=== PATIENT | male | born 1960 | race Caucasian/White ===

== ENCOUNTER 2021-09-29 17:39 | Emergency (ER) | payer BC ==
[2021-09-29 17:49] VITALS: BP 115/79; PULSE 105
[2021-09-29] MEDS ORDERED: Sodium Chloride 0.9% 1,000 ML IV ONE (18:07)
[2021-09-29] MEDS ORDERED: Sodium Chloride 0.9% 10 ML Syringe FLUSH PRN (18:15)
[2021-09-29 18:51] LABS: ANION GAP 17.9 mmol/L (5-15)
--- NOTE | 2021-09-29 19:20 | EDM.PDOC ---
ED HPI GENERAL MEDICAL PROBLEM - General Chief Complaint: General Stated Complaint: POSSIBLE COVID?? Time Seen by Provider: 09/29/21 17:45 Source of Information: Reports: Patient History Limitations: Reports: No Limitations - History of Present Illness INITIAL COMMENTS - FREE TEXT/NARRATIVE: 61-year-old male presents to the emergency room with complaints of muscle aches chills cough sore throat lightheadedness and dizziness weakness. Symptoms started around and progressed Thursday. 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 Feels like he is run himself down. He is not been taking in fluids very adequately and not voiding much. He denies any nausea or vomiting or diarrhea. Is not had any abdominal complaints. He does have a history of Crohn's colitis and denies any significant bleeding from his rectum or dark stools. His primary care is Dr. Sherine Verdugo but has not seen her for quite some time as he follows up with a loan assistant facility service associate rules examiner and neurologist for his significant past history. He does have a history of a pituitary tumor which was partially removed in January 2015 and he was diagnosed with lupus in May 2015. He denies significant weight gain or loss. No fluid retention. He is not aware of any significant exposure to Covid. He denies any respiratory complaints shortness of breath or dyspnea. He denies any upper respiratory or sinusitis complaints. Upon his presentation is nontoxic-appearing. Onset: Gradual Onset Date: 09/26/21 Duration: Day(s):, Getting Worse Location: Reports: Generalized Quality: Reports: Ache Severity: Moderate Improves with: Reports: None Worsens with: Reports: None Associated Symptoms: Reports: Cough, Fever/Chills (Positive for chills negative for fever), Weakness. Denies: Confusion, Chest Pain, cough w sputum, Diaphoresis, Nausea/Vomiting, Shortness of Breath - Related Data Allergies Allergy/AdvReac Type Severity Reaction Status Date / Time Sulfa (Sulfonamide Allergy Rash Verified 09/29/21 17:48 Antibiotics) Home Meds: Home Meds Levothyroxine [Synthroid] 100 mcg PO DAILY 07/13/15 [History] Calcium Carbonate/Vitamin D3 [Calcium 600 + Vit D Tablet] 1 each PO BID 06/02/19 [History] Cholecalciferol (Vitamin D3) [Vitamin D3] 400 unit PO DAILY 06/02/19 [History] Cyanocobalamin (Vitamin B-12) [Cyanocobalamin Injection] 1,000 mcg IJ ASDIRECTED 06/02/19 [History] [place]-3/DHA/Epa/Fish Oil [Fish Oil 1,000 mg Softgel] 1,000 mg PO DAILY 06/02/19 [History] Ustekinumab [Stelara] 90 mg SQ Q2M 09/29/21 [History] predniSONE 7.5 mg PO DAILY 09/29/21 [History] Past Medical History HEENT History: Reports: Impaired Vision Other Genitourinary History: hematuria Other Musculoskeletal History: muscle pain and weakness Endocrine/Metabolic History: Reports: Hypothyroidism, Vitamin D Deficiency Other Endocrine/Metabolic History: pituatary tumor Hematologic History: Reports: B12 Deficiency, Iron Deficiency Immunologic History: Reports: Immunosuppression Other Immunologic History: recently diagnosed - Past Surgical History GI Surgical History: Reports: Colonoscopy, Other (See Below) Other GI Surgeries/Procedures: Ulcerative Colitis Male Surgical History: Reports: None Other Endocrine Surgeries/Procedures: pituatary tumor removed. Social & Family History - Family History Family Medical History: No Pertinent Family History - Tobacco Use Tobacco Use Status *Q: Current Every Day Tobacco User Years of Tobacco use: 8 Packs/Tins Daily: 0.3 - Caffeine Use Caffeine Use: Reports: Coffee, Soda - Recreational Drug Use Recreational Drug Use: No ED ROS GENERAL - Review of Systems Review Of Systems: See Below Constitutional: Reports: Weakness, Fatigue, Decreased Appetite. Denies: Fever, Chills, Diaphoresis HEENT: Reports: Throat Pain. Denies: Rhinitis, Sinus Problem, Throat Swelling, Vertigo, Vision Change Respiratory: Reports: Cough. Denies: Sputum Cardiovascular: Reports: Lightheadedness. Denies: Chest Pain, Dyspnea on Exertion, Edema, Palpitations Endocrine: Reports: Fatigue GI/Abdominal: Reports: No Symptoms : Reports: No Symptoms Musculoskeletal: Reports: No Symptoms Skin: Reports: No Symptoms Neurological: Reports: No Symptoms, Dizziness Psychiatric: Reports: No Symptoms Hematologic/Lymphatic: Reports: No Symptoms Immunologic: Reports: No Symptoms ED EXAM, GENERAL - Physical Exam Exam: See Below Exam Limited By: No Limitations General Appearance: Alert, WD/WN, No Apparent Distress Eye Exam: Bilateral Eye: EOMI, PERRL (Pupils are equal) Throat/Mouth: Normal Voice, No Airway Compromise Head: Atraumatic Neck: Normal Inspection, Supple, Non-Tender, Full Range of Motion. No: Lymphadenopathy (L), Lymphadenopathy (R) Respiratory/Chest: No Respiratory Distress, Lungs Clear, Normal Breath Sounds, No Accessory Muscle Use Cardiovascular: Regular Rate, Rhythm, No Murmur GI/Abdominal: Soft, Non-Tender Back Exam: Normal Inspection Extremities: Normal Inspection Neurological: Alert, Oriented, No Motor/Sensory Deficits Psychiatric: Normal Affect, Normal Mood Skin Exam: Warm, Dry, Intact, Normal Color, No Rash Lymphatic: No Adenopathy Course - Vital Signs Last Recorded V/S: Last Vital Signs Temp 98.6 F 09/29/21 17:44 Pulse 105 H 09/29/21 17:44 Resp 20 09/29/21 17:44 BP 115/79 09/29/21 17:44 Pulse Ox 97 09/29/21 17:44 - Orders/Labs/Meds Orders: Active Orders 24 hr Category Date Time Status COMPREHENSIVE METABOLIC PN,CMP [CHEM] Stat Lab 09/29/21 18:08 Ordered Labs: Laboratory Tests 09/29/21 09/29/21 09/29/21 Range/Units 18:08 18:08 19:11 WBC 10.37 H (5.00-10.00) 10^3/uL RBC 5.07 (4.50-6.00) 10^6/uL Hgb 14.9 (13.0-17.0) g/dL Hct 44.4 (40.0-52.0) % MCV 87.6 (82.0-92.0) fL MCH 29.4 (27.0-31.0) pg MCHC 33.6 (32.0-36.0) g/dL RDW 12.7 (11.5-14.5) % Plt Count 241 (150-400) 10^3/uL MPV 9.9 (7.4-10.4) fL Immature Gran % (Auto) 0.7 (0.0-5.0) % Neut % (Auto) 83.2 H (50.0-70.0) % Lymph % (Auto) 8.7 L (20.0-40.0) % Allen % (Auto) 7.0 (2.0-8.0) % Eos % (Auto) 0.1 L (1.0-3.0) % Baso % (Auto) 0.3 (0.0-1.0) % Neut # (Auto) 8.63 H (2.50-7.00) 10^3/uL Lymph # (Auto) 0.90 L (1.00-4.00) 10^3/uL Allen # (Auto) 0.73 (0.10-0.80) 10^3/uL Eos # (Auto) 0.01 L (0.10-0.30) 10^3/uL Baso # (Auto) 0.03 (0.00-0.10) 10^3/uL Immature Gran # (Auto) 0.07 (0.00-0.50) 10^3/uL Sodium 134 L (136-145) mmol/L Potassium 4.4 (3.5-5.1) mmol/L Chloride 97 L (98-107) mmol/L Carbon Dioxide 23.5 (21.0-32.0) mmol/L Anion Gap 17.9 H (5-15) mmol/L BUN 19 H (7-18) mg/dL Creatinine 1.33 H (0.51-1.17) mg/dL Est Cr Clr Drug Dosing 60.22 mL/min Estimated GFR (MDRD) 55 mL/min Glucose 96 (70-140) mg/dL Calcium 8.2 L (8.7-10.3) mg/dL AST 36 (15-37) U/L ALT 20 (14-63) U/L Alkaline Phosphatase 93 (46-116) U/L Total Protein 7.8 (6.4-8.2) g/dL Albumin 3.49 (3.40-5.00) g/dL Influenza Type A RNA Negative (NEGATIVE) RSV RNA (INAAT) Negative (NEGATIVE) Influenza Type B RNA Negative (NEGATIVE) SARS-CoV-2 RNA (FRANCK) Positive H (NEGATIVE) Meds: Medications Discontinued Medications Generic Name Dose Route Start Last Admin Trade Name Freq PRN Reason Stop Dose Admin Sodium Chloride 1,000 mls @ 1,000 mls/hr 09/29/21 18:07 Normal Saline IV 09/29/21 19:06 .BOLUS ONE - Re-Assessments/Exams Free Text/Narrative Re-Assessment/Exam: 09/29/21 19:38 Discussed Covid positive results with the patient and treatment options as well as isolation for the next 10 to 14 days while symptoms persist. Patient feels much better with the 1 L of IV fluids. Departure - Departure Time of Disposition: 19:39 Disposition: Home, Self-Care 01 Condition: Fair Clinical Impression: Lab test positive for detection of COVID-19 virus, Weakness generalized - Discharge Information Instructions: 10 Things You Can Do to Manage Your COVID-19 Symptoms at Home - [facility] (05/10/2021) Referrals: Sherine Recinos MD [Primary Care Provider] - Forms: ED Department Discharge Care Plan Goals: 1. Rest 2. Isolation over the next 10 to 14 days while symptoms persist. 3. Encouraged and push oral fluids. 4. Discussed the mono nuclear infusion. 5. Return to the ER if symptoms worsen such as increased shortness of breath or difficulty breathing. Sepsis Event Note (ED) - Evaluation Sepsis Screening Result: No Definite Risk - Focused Exam Vital Signs: Vital Signs Temp Pulse Resp BP Pulse Ox 09/29/21 17:44 98.6 F 105 H 20 115/79 97 - My Orders Last 24 Hours: My Active Orders 09/29/21 18:08 COMPREHENSIVE METABOLIC PN,CMP [CHEM] Stat - Assessment/Plan Last 24 Hours: My Active Orders 09/29/21 18:08 COMPREHENSIVE METABOLIC PN,CMP [CHEM] Stat Assessment:: Covid positive lab result Generalized weakness Dehydration, IV fluid replacement Plan: 1. Rest 2. Isolation over the next 10 to 14 days while symptoms persist. 3. Encouraged and push oral fluids. 4. Discussed the mono nuclear infusion. 5. Return to the ER if symptoms worsen such as increased shortness of breath or difficulty breathing.
[2021-09-29 19:24] LABS: CORONAVIRUS COVID-19 NAA POSITIVE (NEGATIVE); RESPIRATORY SYNCYTIAL VIR NAA NEGATIVE (NEGATIVE)
== END 2021-09-29 19:50 | disposition home or self-care (01) ==
LOC: KA.ED 17:39
DX: U07.1 COVID-19 (principal); Z88.2 Allergy status to sulfonamides; Z79.899 Other long term (current) drug therapy; Z72.0 Tobacco use
CPT/HCPCS: 0241U; 36415; 80053; 85025; 99284; J7030

== ENCOUNTER 2021-10-04 11:38 | Emergency (ER) | payer BC ==
[2021-10-04 11:54] VITALS: BP 139/88; PULSE 107
--- NOTE | 2021-10-04 12:24 | EDM.PDOC ---
ED HPI GENERAL MEDICAL PROBLEM - General Chief Complaint: Respiratory Problem Stated Complaint: COVID + Time Seen by Provider: 10/04/21 11:40 Source of Information: Reports: Patient, EMS, RN History Limitations: Reports: No Limitations - History of Present Illness INITIAL COMMENTS - FREE TEXT/NARRATIVE: 61-year-old male presents to the emergency room brought in by EMS for respi ratory complaints. Patient is feeling progressively short of breath and increased weakness today with associated chills. He was diagnosed with Covid positive test last Thursday in the emergency room. He has been feeling overall fairly well until this morning when the aches chills weakness and shortness of breath presented itself. EMS was called to his house he was evaluated. Evidently he was running a temp of about 102. He was tachycardic O2 saturations were well maintained at 95%. He was placed on a nasal cannula 5 L and O2 sats were maintained at 100%. His respirations have remained around 16-20. He is not cyanotic appearing he is in no acute distress. He is not in any respiratory distress. Temperature currently was 100.7. O2 saturation was taken off and he was able to maintain his O2 stats at 95% and respirations were 16. He was given 1000 mg of Tylenol soon after his arrival. He had 1 L of normal saline bolus in route. He is communicative, cooperative and is able to answer all questions without increased respiratory effort. He did receive monoclonal antibodies infusion 5 days ago. Onset: Gradual Duration: Getting Worse Location: Reports: Chest, Generalized Quality: Reports: Ache Severity: Moderate Improves with: Reports: None Worsens with: Reports: None Context: Reports: Sick Contact (COVID) Associated Symptoms: Reports: Cough, Fever/Chills, Shortness of Breath, Weakness. Denies: Chest Pain, Diaphoresis, Headaches, Nausea/Vomiting Treatments [employer]: Reports: IV/IO, Oxygen, See EMS Report Back Pain Score (Numeric/FACES): 3 - Related Data Allergies Allergy/AdvReac Type Severity Reaction Status Date / Time Sulfa (Sulfonamide Allergy Rash Verified 10/04/21 11:55 Antibiotics) Home Meds: Home Meds Levothyroxine [Synthroid] 100 mcg PO DAILY 07/13/15 [History] Calcium Carbonate/Vitamin D3 [Calcium 600 + Vit D Tablet] 1 each PO BID 06/02/19 [History] Cholecalciferol (Vitamin D3) [Vitamin D3] 400 unit PO DAILY 06/02/19 [History] Cyanocobalamin (Vitamin B-12) [Cyanocobalamin Injection] 1,000 mcg IJ Q30D 06/02/19 [History] [place]-3/DHA/Epa/Fish Oil [Fish Oil 1,000 mg Softgel] 1,000 mg PO DAILY 06/02/19 [History] Ustekinumab [Stelara] 90 mg SQ Q2M 09/29/21 [History] predniSONE 7.5 mg PO DAILY 09/29/21 [History] Celecoxib 200 mg PO DAILY PRN 09/30/21 [History] Zinc 50 mg PO DAILY 09/30/21 [History] Past Medical History HEENT History: Reports: Impaired Vision Other HEENT History: wears glasses Gastrointestinal History: Reports: Gastritis, Other (See Below) Other Gastrointestinal History: Crohn's Genitourinary History: Reports: Other (See Below) Other Genitourinary History: hematuria,ulcerative proctitis Other Musculoskeletal History: muscle pain and weakness Endocrine/Metabolic History: Reports: Hypothyroidism, Vitamin D Deficiency Other Endocrine/Metabolic History: pituitary tumor. lipoprotein deficiency disorder. Lupus Hematologic History: Reports: B12 Deficiency, Iron Deficiency Immunologic History: Reports: Immunosuppression Other Immunologic History: recently diagnosed - Infectious Disease History Infectious Disease History: Reports: Chicken Pox, Novel Coronavirus, Rubella Other Infectious Disease History: Covid 09/29/21 - Past Surgical History Head Surgeries/Procedures: Reports: Other (See Below) GI Surgical History: Reports: Appendectomy, Colonoscopy, Other (See Below) Other GI Surgeries/Procedures: Ulcerative Colitis Male Surgical History: Reports: None Endocrine Surgical History: Reports: Pituitary Tumor Resection Other Endocrine Surgeries/Procedures: pituatary tumor removed. Neurological Surgical History: Reports: Intracranial Musculoskeletal Surgical History: Reports: Arthroscopic Knee Social & Family History - Family History Family Medical History: No Pertinent Family History - Tobacco Use Tobacco Use Status *Q: Current Every Day Tobacco User Years of Tobacco use: 10 Packs/Tins Daily: 5 - Caffeine Use Caffeine Use: Reports: Coffee, Soda - Recreational Drug Use Recreational Drug Use: No ED ROS GENERAL - Review of Systems Review Of Systems: See Below Constitutional: Reports: Fever, Chills, Weakness, Fatigue HEENT: Reports: No Symptoms Respiratory: Reports: Shortness of Breath, Cough Cardiovascular: Reports: No Symptoms Endocrine: Reports: No Symptoms GI/Abdominal: Reports: No Symptoms : Reports: No Symptoms Musculoskeletal: Reports: No Symptoms Skin: Reports: No Symptoms. Denies: Cyanosis Neurological: Reports: Weakness Psychiatric: Reports: No Symptoms Hematologic/Lymphatic: Reports: No Symptoms Immunologic: Reports: No Symptoms ED EXAM, GENERAL - Physical Exam Exam: See Below Exam Limited By: No Limitations General Appearance: Alert, WD/WN, No Apparent Distress, Anxious Eye Exam: Bilateral Eye: EOMI, PERRL (Pupils are equal and round) Ears: Hearing Grossly Normal Nose: Normal Inspection, Normal Mucosa, No Blood Throat/Mouth: Normal Inspection, Normal Voice, No Airway Compromise, Other (Nasal cannula, nonrebreather mask are in place) Head: Atraumatic, Normocephalic Neck: Normal Inspection, Supple, Non-Tender, Full Range of Motion. No: Lymphadenopathy (L), Lymphadenopathy (R) Respiratory/Chest: No Respiratory Distress, Lungs Clear, Normal Breath Sounds, No Accessory Muscle Use, Chest Non-Tender. No: Crackles, Rales, Rhonchi, Wheezing Cardiovascular: Normal Peripheral Pulses, Regular Rate, Rhythm, Tachycardia Peripheral Pulses: 2+: Carotid (L), Carotid (R), Radial (L), Radial (R), Dorsalis Pedis (L), Dorsalis Pedis (R) GI/Abdominal: Soft, Non-Tender Back Exam: Normal Inspection, Full Range of Motion Extremities: Normal Inspection, Normal Range of Motion, Non-Tender, No Pedal Frankie ma, Normal Capillary Refill Neurological: Alert, Oriented, CN II-XII Intact, Normal Cognition, Normal Gait, Normal Reflexes, No Motor/Sensory Deficits Psychiatric: Normal Affect, Normal Mood Skin Exam: Warm, Dry, Intact, Normal Color, No Rash. No: Cyanosis, Diaphoretic Lymphatic: No Adenopathy Course - Vital Signs Last Recorded V/S: Last Vital Signs Temp 99.1 F 10/04/21 13:58 Pulse 107 H 10/04/21 11:47 Resp 24 H 10/04/21 11:47 BP 139/88 10/04/21 11:47 Pulse Ox 95 10/04/21 12:10 - Orders/Labs/Meds Orders: Active Orders 24 hr Category Date Time Status PROCALCITONIN [REF] Stat Lab 10/04/21 12:35 Received Sodium Chloride 0.9% [Normal Saline] 100 ml Med 10/04/21 14:15 Active IV ASDIRECTED Medication Orders Sodium Chloride (Normal Saline) 100 mls @ 200 mls/hr IV ASDIRECTED LONI Last Admin: 10/04/21 14:36 Dose: 200 mls/hr Documented by: Labs: Laboratory Tests 10/04/21 10/04/21 10/04/21 Range/Units 12:35 12:35 12:35 WBC 10.43 H (5.00-10.00) 10^3/uL RBC 4.23 L (4.50-6.00) 10^6/uL Hgb 12.6 L D (13.0-17.0) g/dL Hct 37.5 L (40.0-52.0) % MCV 88.7 (82.0-92.0) fL MCH 29.8 (27.0-31.0) pg MCHC 33.6 (32.0-36.0) g/dL RDW 12.4 (11.5-14.5) % Plt Count 185 (150-400) 10^3/uL MPV 9.3 (7.4-10.4) fL Add Manual Diff Yes Neutrophils % (Manual) 94 H (50-70) % Band Neutrophils % 3 L (4-12) % Lymphocytes % (Manual) 3 L (20-40) % Atypical Lymphs % 0 Monocytes % (Manual) 0 L (2-8) % Eosinophils % (Manual) 0 L (1-3) % Basophils % (Manual) 0 (0-1) % Platelet Estimate Adequate PT (9.2-11.2) SEC INR (0.9-1.1) APTT (22.8-31.4) SEC D-Dimer, Quantitative (<400) ng/mL Sodium 138 (136-145) mmol/L Potassium 3.5 (3.5-5.1) mmol/L Chloride 101 (98-107) mmol/L Carbon Dioxide 24.9 (21.0-32.0) mmol/L Anion Gap 15.6 H (5-15) mmol/L BUN 15 (7-18) mg/dL Creatinine 1.30 H (0.51-1.17) mg/dL Est Cr Clr Drug Dosing 61.61 mL/min Estimated GFR (MDRD) 56 mL/min Glucose 94 (70-140) mg/dL Lactic Acid 1.4 (0.4-2.0) mmol/L Calcium 7.5 L (8.7-10.3) mg/dL Creatine Kinase 107 (26-276) U/L Troponin I High Sens 8.400 (0-76.000) pg/mL C-Reactive Protein 2.7 H (0.0-0.9) mg/dL 10/04/21 Range/Units 12:35 WBC (5.00-10.00) 10^3/uL RBC (4.50-6.00) 10^6/uL Hgb (13.0-17.0) g/dL Hct (40.0-52.0) % MCV (82.0-92.0) fL MCH (27.0-31.0) pg MCHC (32.0-36.0) g/dL RDW (11.5-14.5) % Plt Count (150-400) 10^3/uL MPV (7.4-10.4) fL Add Manual Diff Neutrophils % (Manual) (50-70) % Band Neutrophils % (4-12) % Lymphocytes % (Manual) (20-40) % Atypical Lymphs % Monocytes % (Manual) (2-8) % Eosinophils % (Manual) (1-3) % Basophils % (Manual) (0-1) % Platelet Estimate PT 11.9 H (9.2-11.2) SEC INR 1.1 (0.9-1.1) APTT 29.1 (22.8-31.4) SEC D-Dimer, Quantitative 1830 H (<400) ng/mL Sodium (136-145) mmol/L Potassium (3.5-5.1) mmol/L Chloride (98-107) mmol/L Carbon Dioxide (21.0-32.0) mmol/L Anion Gap (5-15) mmol/L BUN (7-18) mg/dL Creatinine (0.51-1.17) mg/dL Est Cr Clr Drug Dosing mL/min Estimated GFR (MDRD) mL/min Glucose (70-140) mg/dL Lactic Acid (0.4-2.0) mmol/L Calcium (8.7-10.3) mg/dL Creatine Kinase (26-276) U/L Troponin I High Sens (0-76.000) pg/mL C-Reactive Protein (0.0-0.9) mg/dL Meds: Medications Generic Name Dose Route Start Last Admin Trade Name Giulianoq PRN Reason Stop Dose Admin Sodium Chloride 100 mls @ 200 mls/hr 10/04/21 14:15 10/04/21 14:36 Normal Saline IV 200 mls/hr ASDIRECTED LONI Administration Discontinued Medications Generic Name Dose Route Start Last Admin Trade Name Freq PRN Reason Stop Dose Admin Acetaminophen 1,000 mg 10/04/21 12:30 10/04/21 12:53 Acetaminophen 500 Mg Tab PO 10/04/21 12:31 1,000 mg ONETIME ONE Administration Dexamethasone 6 mg 10/04/21 12:49 10/04/21 12:50 Dexamethasone 4 Mg/Ml Sdv IVPUSH 10/04/21 12:50 6 mg ONETIME ONE Administration Sodium Chloride Confirm 10/04/21 12:57 10/04/21 13:02 Normal Saline Administered 10/04/21 12:58 Not Given Dose 1,000 mls @ as directed .ROUTE .STK-MED ONE Sodium Chloride 1,000 mls @ 999 mls/hr 10/04/21 13:00 10/04/21 13:00 Normal Saline IV 10/04/21 14:00 999 mls/hr .BOLUS ONE Administration Iopamidol 75 ml 10/04/21 14:06 10/04/21 14:36 Iopamidol 755 Mg/Ml 75 Ml Bottle IVPUSH 10/04/21 14:07 75 ml ONETIME ONE Administration - Radiology Interpretation Free Text/Narrative:: CT angiogram chest Indication: Shortness of breath, elevated D-dimer, Covid positive Comparison: None Discussion: The pulmonary arteries are normal in appearance with no emboli identified. Basal and peripheral predominant consolidation and groundglass opacities scattered throughout both lungs compatible the clinical history of Covid pneumonia. Sequela of chronic obstructive pulmonary disease including mild to moderate apical prominent emphysema and changes of bronchitis. Mild cardiomegaly. Coronary artery calcifications. No pleural or pericardial effusion. Mildly prominent right hilar node measuring 20 x 13. Otherwise no thoracic adenopathy. Small sliding-type hiatus hernia. Impression: Multifocal peripheral predominant groundglass opacities and consolidation consistent with a history of Covid pneumonia. Negative for pulmonary embolism. - Re-Assessments/Exams Free Text/Narrative Re-Assessment/Exam: 10/04/21 13:42 Patient is resting comfortably. His O2 saturations are maintained at 92 to 95% on room air. Blood pressures been maintained. His respirations are 22. He is receiving an additional liter of IV fluids as his creatinine was mildly elevated likely indicating he is dehydrated as well as mildly tachycardic. His lactic acid is normal. White count is just mildly elevated. There is no shift. CRP is mildly elevated. Departure - Departure Time of Disposition: 15:05 Disposition: Home, Self-Care 01 Condition: Fair Clinical Impression: COVID-19 in immunocompromised patient - Discharge Information Instructions: 10 Things You Can Do to Manage Your COVID-19 Symptoms at Home - [facility] (05/10/2021) Referrals: Janel Colon, [employer]CRA[employer]PATCHER [Primary Care Provider] - Forms: ED Department Discharge Care Plan Goals: 1. Rest 2. Tylenol for any fever or chills, muscle aches. 3. Push oral fluids including water, Pedialyte, Gatorade for electrolyte replacement. 4. Continue with isolation with your current Covid symptoms. 5. Return to the ER if respiratory distress, difficulty breathing becomes problematic. 6. CT scan was negative for PE. Sepsis Event Note (ED) - Evaluation Sepsis Screening Result: Possible Sepsis Risk - Focused Exam Vital Signs: Vital Signs Temp Temp Pulse Resp BP Pulse Ox Pulse Ox 10/04/21 13:58 99.1 F 10/04/21 12:53 98.9 F 10/04/21 12:10 10/04/21 11:47 100.7 F H 107 H 24 H 139/88 99 10/04/21 11:40 99 Pulse Ox 10/04/21 13:58 10/04/21 12:53 10/04/21 12:10 95 10/04/21 11:47 10/04/21 11:40 - My Orders Last 24 Hours: My Active Orders 10/04/21 12:35 PROCALCITONIN [REF] Stat 10/04/21 14:15 Sodium Chloride 0.9% [Normal Saline] 100 ml IV ASDIRECTED - Assessment/Plan Last 24 Hours: My Active Orders 10/04/21 12:35 PROCALCITONIN [REF] Stat 12/10/21 14:15 Sodium Chloride 0.9% [Normal Saline] 100 ml IV ASDIRECTED Assessment:: Covid pneumonia Respiratory complaint. No respiratory distress with maintaining O2 saturations room air Plan: 1. Rest 2. Patient is encouraged to push fluids for hydration. Water, Gatorade, Pedialyte to maintain his electrolytes. 3. Tylenol for any fever or chills or aches. 4. Continue with isolation. 5. Return to the ER with any respiratory distress.
[2021-10-04] MEDS ORDERED: Acetaminophen 500 MG Tab PO ONE (12:30)
[2021-10-04] MEDS ORDERED: Dexamethasone 4 MG/ML SDV IVPUSH ONE (12:49)
[2021-10-04] MEDS ORDERED: Sodium Chloride 0.9% 1,000 ML ONE (12:57)
[2021-10-04] MEDS ORDERED: Sodium Chloride 0.9% 1,000 ML IV ONE (13:00)
[2021-10-04 13:08] LABS: ANION GAP 15.6 mmol/L (5-15)
[2021-10-04 13:12] LABS: PTT,PARTIAL THROMBOPLSTIN TIME 29.1 SEC (22.8-31.4)
[2021-10-04] MEDS ORDERED: Iopamidol 755 Mg/ML 75 ML Bottle IVPUSH ONE (14:06)
[2021-10-04] MEDS ORDERED: Sodium Chloride 0.9% 100 ML IV SCH (14:15)
--- NOTE | 2021-10-04 14:57 | CT ---
[id number] CT/CTA Chest EXAM: CT ANGIOGRAM CHEST INDICATION: SHORTNESS OF BREATH, ELEVATED D-DIMER, COVID +. COMPARISON: None. DISCUSSION: The pulmonary arteries are normal in appearance with no emboli identified. Basal and peripheral predominant consolidation and groundglass opacities scattered throughout both lungs compatible the clinical history of COVID pneumonia. Sequela of chronic obstructive pulmonary disease including mild to moderate apical predominant emphysema and changes of bronchitis. Mild cardiomegaly. Coronary artery calcifications. No pleural or pericardial effusion. Mildly prominent right hilar node measuring 20 x 13 mm. Otherwise, no thoracic adenopathy. Small sliding type hiatus hernia. IMPRESSION: 1. Multifocal peripheral predominant groundglass opacities and consolidation consistent with the clinical history of COVID pneumonia. 2. Negative for pulmonary embolism. Sabino Naranjo MD 10/04/21 [id number] Thank you for allowing us to participate in the care of your patient.
== END 2021-10-04 15:15 | disposition home or self-care (01) ==
LOC: KA.ED 11:38
DX: U07.1 COVID-19 (principal); D84.9 Immunodeficiency, unspecified; E03.9 Hypothyroidism, unspecified; Z88.2 Allergy status to sulfonamides; Z79.899 Other long term (current) drug therapy; Z72.0 Tobacco use
CPT/HCPCS: 36415; 71275; 80048; 82550; 83605; 84145; 84484; 85025; 85379; 85610; 85730; 86140; 96374; 99284; 99285-25; A9270-GY; J1100; J7030; Q9967

== ENCOUNTER 2021-10-11 11:10 | Observation (INO) | payer BC ==
[2021-10-11] MEDS ORDERED: Sodium Chloride 0.9% 1,000 ML IV ONE (11:27)
[2021-10-11] MEDS ORDERED: Sodium Chloride 0.9% 10 ML Syringe FLUSH PRN (11:27)
[2021-10-11] MEDS ORDERED: LORazepam 2 MG/ML SDV IVPUSH ONE (11:27)
[2021-10-11] MEDS ORDERED: Acetaminophen 500 MG Tab PO ONE (11:27)
--- NOTE | 2021-10-11 11:30 | EDM.PDOC ---
ED HPI GENERAL MEDICAL PROBLEM - General Chief Complaint: General Stated Complaint: RIGORS Time Seen by Provider: 10/11/21 11:18 Source of Information: Reports: Patient, EMS History Limitations: Reports: No Limitations - History of Present Illness INITIAL COMMENTS - FREE TEXT/NARRATIVE: 61 YO WM PRESENTS TO ER BY EMS WITH COMPLAINTS OF GENERALIZED WEAKNESS WHICH HAS BEEN PROGRESSIVE SINCE 09/26/2021. PT WAS SEEN IN ER ON 09/29/2021 FOR SIMILAR SYMPTOMS AND DIAGNOSED WITH COVID. PT WAS GIVEN IV INFUSION OF MONOCLONAL ANTIBODIES ON 09/30/2021. PT RETURNED TO ER FOR WORSENING SHORTNESS OF BREATH ON 10/04/2021 AND WAS SUBSEQUENTLY DISCHARGED HOME WITH SUPPORTIVE CARE BUT WITHOUT SUPPLEMENTAL O2. PT RETURNS TODAY WITH COMPLAINTS OF INSOMNIA, ANOREXIA AND SEVERE CHILLS WITH GENERALIZED WEAKNESS. PT CALLED EMS AND WAS STARTED ON O2 5L NONREBREATHER. PT REPORTS HE FEELS NAUSEATED AND CHILLED MOSTLY AND UNABLE TO EAT OR DRINK ANYTHING OTHER THAN WATER. DENIES CHEST PAIN, NO SIGNIFICANT SHORTNESS OF BREATH, NO VOMITING, NO DIARRHEA. PT UNSURE IF HE HAS A FEVER BUT IN ER TEMP- 98.3. Onset Date: 09/26/21 Duration: Getting Worse, Waxing/Waning Location: Reports: Generalized Quality: Reports: Ache Severity: Moderate Improves with: Reports: None Worsens with: Reports: None Associated Symptoms: Reports: Cough, Loss of Appetite, Malaise, Nausea/Vomiting, Weakness. Denies: Confusion, Chest Pain, Fever/Chills, Headaches, Rash, Seizure, Shortness of Breath Treatments COPYMAN: Reports: NSAIDS - Related Data Allergies Allergy/AdvReac Type Severity Reaction Status Date / Time Sulfa (Sulfonamide Allergy Rash Verified 10/11/21 12:22 Antibiotics) Home Meds: Home Meds Levothyroxine [Synthroid] 100 mcg PO DAILY 07/13/15 [History] Calcium Carbonate/Vitamin D3 [Calcium 600 + Vit D Tablet] 1 each PO BID 06/02/19 [History] Cholecalciferol (Vitamin D3) [Vitamin D3] 400 unit PO DAILY 06/02/19 [History] Cyanocobalamin (Vitamin B-12) [Cyanocobalamin Injection] 1,000 mcg IJ Q30D 06/02/19 [History] [place]-3/DHA/Epa/Fish Oil [Fish Oil 1,000 mg Softgel] 1,000 mg PO DAILY 06/02/19 [History] Ustekinumab [Stelara] 90 mg SQ Q2M 09/29/21 [History] predniSONE 7.5 mg PO DAILY 09/29/21 [History] Celecoxib 200 mg PO DAILY PRN 09/30/21 [History] Zinc 50 mg PO DAILY 09/30/21 [History] Past Medical History HEENT History: Reports: Impaired Vision Other HEENT History: wears glasses Gastrointestinal History: Reports: Gastritis, Other (See Below) Other Gastrointestinal History: Crohn's Genitourinary History: Reports: Other (See Below) Other Genitourinary History: hematuria,ulcerative proctitis Other Musculoskeletal History: muscle pain and weakness Endocrine/Metabolic History: Reports: Hypothyroidism, Vitamin D Deficiency Other Endocrine/Metabolic History: pituitary tumor. lipoprotein deficiency disorder. Lupus Hematologic History: Reports: B12 Deficiency, Iron Deficiency Immunologic History: Reports: Immunosuppression Other Immunologic History: recently diagnosed - Infectious Disease History Infectious Disease History: Reports: Chicken Pox, Novel Coronavirus, Rubella Other Infectious Disease History: Covid 09/29/21 - Past Surgical History Head Surgeries/Procedures: Reports: Other (See Below) GI Surgical History: Reports: Appendectomy, Colonoscopy, Other (See Below) Other GI Surgeries/Procedures: Ulcerative Colitis Male Surgical History: Reports: None Endocrine Surgical History: Reports: Pituitary Tumor Resection Other Endocrine Surgeries/Procedures: pituatary tumor removed. Neurological Surgical History: Reports: Intracranial Musculoskeletal Surgical History: Reports: Arthroscopic Knee Social & Family History - Family History Family Medical History: No Pertinent Family History - Caffeine Use Caffeine Use: Reports: Coffee, Soda ED ROS GENERAL - Review of Systems Review Of Systems: See Below Constitutional: Reports: Chills, Malaise, Weakness, Fatigue, Decreased Appetite HEENT: Reports: Rhinitis Respiratory: Reports: Shortness of Breath, Cough Cardiovascular: Reports: No Symptoms Endocrine: Reports: No Symptoms GI/Abdominal: Reports: Decreased Appetite, Nausea. Denies: Abdominal Pain, Black Stool, Bloody Stool, Diarrhea, Vomiting : Reports: No Symptoms Musculoskeletal: Reports: No Symptoms Skin: Reports: No Symptoms Neurological: Reports: No Symptoms Psychiatric: Reports: Anxiety Hematologic/Lymphatic: Reports: No Symptoms Immunologic: Reports: No Symptoms ED EXAM, GENERAL - Physical Exam Exam: See Below Exam Limited By: No Limitations General Appearance: Alert, WD/WN, Anxious Eye Exam: Bilateral Eye: EOMI, PERRL Head: Atraumatic, Normocephalic Neck: Normal Inspection, Supple, Non-Tender, Full Range of Motion Respiratory/Chest: No Respiratory Distress ( ), Lungs Clear, Normal Breath Sounds, No Accessory Muscle Use, Chest Non-Tender Cardiovascular: Normal Peripheral Pulses, Regular Rate, Rhythm, No Edema, No Gallop, No JVD, No Murmur, No Rub GI/Abdominal: Normal Bowel Sounds, Soft, Non-Tender, No Organomegaly, No Distention, No Abnormal Bruit, No Mass Back Exam: Normal Inspection, Full Range of Motion, NT Extremities: Normal Inspection, Normal Range of Motion, Non-Tender, Normal Capillary Refill, No Pedal Edema Neurological: Alert, Oriented, CN II-XII Intact, Normal Cognition, Normal Gait, No Motor/Sensory Deficits Psychiatric: Normal Affect, Normal Mood Skin Exam: Warm, Dry, Intact, Normal Color, No Rash Lymphatic: No Adenopathy #1 Interpretation EKG Date: 10/11/21 Time: 11:40 Rhythm: NSR Rate (Beats/Min): 106 [place]: Normal P-Wave: Present QRS: Normal ST-T: Normal QT: Normal Comparison: NA - No Prior EKG Course - Vital Signs Last Recorded V/S: Last Vital Signs Temp 98.3 F 10/11/21 12:07 Pulse 22 L 10/11/21 12:07 Resp 22 H 10/11/21 12:07 BP 131/79 10/11/21 12:07 Pulse Ox 98 10/11/21 12:07 - Orders/Labs/Meds Orders: Active Orders 24 hr Category Date Time Status Peripheral IV Care [RC] . DIRECTED Care 10/11/21 11:28 Active CORONAVIRUS COVID-19 RAPID [MOLEC] Stat Lab 10/11/21 13:01 Ordered CULTURE BLOOD [BC] Stat Lab 10/11/21 12:03 Ordered CULTURE BLOOD [BC] Stat Lab 10/11/21 12:03 Ordered UA W/MICROSCOPIC [URIN] Stat Lab 10/11/21 12:03 Ordered Levofloxacin/Dextrose 5%-Water [Levaquin in D5W 500 MG/ Med 10/11/21 12:59 Ordered 100 ML] 500 mg Premix Bag 1 bag IV ONETIME Sodium Chloride 0.9% [Saline Flush] Med 10/11/21 11:27 Active 10 ml FLUSH Q8HR PRN Blood Culture x2 Reflex Set [OM.PC] Stat Oth 10/11/21 12:03 Ordered Peripheral IV Insertion Adult [OM.PC] Routine Oth 10/11/21 11:27 Ordered EKG 12 Lead [EK] Stat Ther 10/11/21 11:27 Ordered Medication Orders Levofloxacin/Dextrose 500 mg/ (Premix) 100 mls @ 100 mls/hr IV ONETIME ONE Stop: 10/11/21 13:58 Sodium Chloride (Sodium Chloride 0.9% 10 Ml Syringe) 10 ml FLUSH Q8HR PRN PRN Reason: keep vein open Labs: Laboratory Tests 10/11/21 10/11/21 10/11/21 Range/Units 11:34 11:34 11:34 WBC 19.70 H (5.00-10.00) 10^3/uL RBC 4.03 L (4.50-6.00) 10^6/uL Hgb 11.8 L (13.0-17.0) g/dL Hct 34.4 L (40.0-52.0) % MCV 85.4 D (82.0-92.0) fL MCH 29.3 (27.0-31.0) pg MCHC 34.3 (32.0-36.0) g/dL RDW 12.5 (11.5-14.5) % Plt Count 431 H D (150-400) 10^3/uL MPV 10.0 (7.4-10.4) fL Add Manual Diff Yes Neutrophils % (Manual) 93 H (50-70) % Band Neutrophils % 2 L (4-12) % Lymphocytes % (Manual) 4 L (20-40) % Atypical Lymphs % 0 Monocytes % (Manual) 1 L (2-8) % Eosinophils % (Manual) 0 L (1-3) % Basophils % (Manual) 0 (0-1) % Platelet Estimate Increased Sodium 132 L (136-145) mmol/L Potassium 3.5 (3.5-5.1) mmol/L Chloride 96 L (98-107) mmol/L Carbon Dioxide 17.4 L (21.0-32.0) mmol/L Anion Gap 22.1 H (5-15) mmol/L BUN 22 H (7-18) mg/dL Creatinine 1.31 H (0.51-1.17) mg/dL Est Cr Clr Drug Dosing TNP Estimated GFR (MDRD) 56 mL/min Glucose 109 (70-140) mg/dL Lactic Acid 2.6 H (0.4-2.0) mmol/L Calcium 7.9 L (8.7-10.3) mg/dL Total Bilirubin 1.6 H (0.2-1.0) mg/dL AST 66 H (15-37) U/L ALT 73 H (14-63) U/L Alkaline Phosphatase 145 H (46-116) U/L Troponin I High Sens 162.600 H* (0-76.000) pg/mL Total Protein 6.9 (6.4-8.2) g/dL Albumin 2.31 L (3.40-5.00) g/dL Meds: Medications Generic Name Dose Route Start Last Admin Trade Name Freq PRN Reason Stop Dose Admin Levofloxacin/Dextrose 500 mg/ 100 mls @ 100 mls/hr 10/11/21 12:59 Premix IV 10/11/21 13:58 ONETIME ONE Sodium Chloride 10 ml 10/11/21 11:27 Sodium Chloride 0.9% 10 Ml Syringe FLUSH Q8HR PRN keep vein open Discontinued Medications Generic Name Dose Route Start Last Admin Trade Name Freq PRN Reason Stop Dose Admin Acetaminophen 1,000 mg 10/11/21 11:27 10/11/21 11:40 Acetaminophen 500 Mg Tab PO 10/11/21 11:28 1,000 mg ONETIME ONE Administration Sodium Chloride 1,000 mls @ 999 mls/hr 10/11/21 11:27 10/11/21 11:50 Normal Saline IV 10/11/21 12:27 999 mls/hr .BOLUS ONE Administration Lorazepam 1 mg 10/11/21 11:27 10/11/21 11:50 Lorazepam 2 Mg/Ml Sdv IVPUSH 10/11/21 11:28 1 mg ONETIME ONE Administration Departure - Departure Time of Disposition: 13:08 Disposition: Refer to Observation Condition: Serious Clinical Impression: Elevated troponin, Elevated lactic acid level, Hyponatremia, Renal insufficiency, mild - Discharge Information Sepsis Event Note (ED) - Focused Exam Vital Signs: Vital Signs Temp Temp Pulse Resp BP Pulse Ox 10/11/21 12:07 98.3 F 22 L 22 H 131/79 98 12/17/21 12:00 102 H 23 H 119/74 96 10/11/21 11:45 103 H 97 H 112/72 1 L 10/11/21 11:40 98.3 F 10/11/21 11:30 105 H 128/77 99 10/11/21 11:15 114 H 127/78 98 - My Orders Last 24 Hours: My Active Orders 10/11/21 11:27 Sodium Chloride 0.9% [Saline Flush] 10 ml FLUSH Q8HR PRN Peripheral IV Insertion Adult [OM.PC] Routine EKG 12 Lead [EK] Stat 10/11/21 11:28 Peripheral IV Care [RC] . DIRECTED 10/11/21 12:03 CULTURE BLOOD [BC] Stat CULTURE BLOOD [BC] Stat UA W/MICROSCOPIC [URIN] Stat Blood Culture x2 Reflex Set [OM.PC] Stat 10/11/21 12:59 Levofloxacin/Dextrose 5%-Water [Levaquin in D5W 500 MG/100 ML] 500 mg Premix Bag 1 bag IV ONETIME 10/11/21 13:01 CORONAVIRUS COVID-19 RAPID [MOLEC] Stat - Assessment/Plan Last 24 Hours: My Active Orders 10/11/21 11:27 Sodium Chloride 0.9% [Saline Flush] 10 ml FLUSH Q8HR PRN Peripheral IV Insertion Adult [OM.PC] Routine EKG 12 Lead [EK] Stat 10/11/21 11:28 Peripheral IV Care [RC] . DIRECTED 10/11/21 12:03 CULTURE BLOOD [BC] Stat CULTURE BLOOD [BC] Stat UA W/MICROSCOPIC [URIN] Stat Blood Culture x2 Reflex Set [OM.PC] Stat 10/11/21 12:59 Levofloxacin/Dextrose 5%-Water [Levaquin in D5W 500 MG/100 ML] 500 mg Premix Bag 1 bag IV ONETIME 10/11/21 13:01 CORONAVIRUS COVID-19 RAPID [MOLEC] Stat Assessment:: 1. LEUKOCYTOSIS- ON PREDNISONE 2. ELEVATED LACTIC ACID- R/O SEPSIS 3. ELEVATED TROP I- WILL TREND 4. HYPONATREMIA 5. RENAL INSUFFICIENCY Plan: 1. DISCUSSED CASE WITH YULY PALACIO- WILL ADMIT FOR OBS AND TREND LABS 2. ORDERS PER YULY SOTELO 3. CONTINUE IVF 4. LEVAQUIN 500MG IV NOW 5. REPEAT TROP I Q4 6. FOLLOW LACTIC ACID TREND/WBC'S 7. SUPPORTIVE CARE
[2021-10-11 12:00] LABS: ANION GAP 22.1 mmol/L (5-15); CHLORIDE,CL 96 mmol/L (98-107); SODIUM,NA 132 mmol/L (136-145)
--- NOTE | 2021-10-11 12:16 | CR ---
[id number] RAD/RAD Chest PA or AP 1V EXAM: RAD Chest PA or AP 1V INDICATION: SHORTNESS OF BREATH. COMPARISON: None. DISCUSSION: Cardiomediastinal silhouette is normal in size and contour. No infiltrate, effusion, pneumothorax, or edema. Pulmonary hyperinflation. IMPRESSION: No acute cardiopulmonary abnormality. Nikolai Sifuentes DO 10/11/21 [id number] Thank you for allowing us to participate in the care of your patient.
[2021-10-11] MEDS ORDERED: Levofloxacin/Dextrose 5%-Water 500 MG in Premix Bag 1 BAG IV ONE (12:59)
[2021-10-11] MEDS ORDERED: Sodium Chloride 0.9% 1,000 ML ONE (13:04)
[2021-10-11] MEDS ORDERED: Aspirin 81 MG Tab.Chew PO ONE ×2 (13:05→17:52)
[2021-10-11] MEDS ORDERED: Sodium Chloride 0.9% 1,000 ML IV SCH ×2 (13:15)
--- NOTE | 2021-10-11 16:25 | PCM.HP.2 ---
H&P History of Present Illness - General Date of Service: 10/11/21 Admit Problem/Dx: Admission Diagnosis/Problem Admission Diagnosis/Problem Elevated troponin I level Source of Information: Patient History Limitations: Reports: No Limitations - History of Present Illness Initial Comments - Free Text/Narative: 61 year old male admitted from the ED for elevated troponin, elevated WBC with lactic acid. Reports he had been COVID positive on 09/29/2021 and was given IV monoclonal antibodies on 09/30/2021. He returned to the ED with continued weakness and rigors on 10/04/2021 and was discharged home. Patient presented to the ED via ambulance today with rigors, weakness and decreased appetite. Denies chest pain or shortness of breath. - Related Data Allergies/Adverse Reactions: Allergies Allergy/AdvReac Type Severity Reaction Status Date / Time Sulfa (Sulfonamide Allergy Rash Verified 10/11/21 12:22 Antibiotics) Home Medications: Home Meds Levothyroxine [Synthroid] 100 mcg PO DAILY 07/13/15 [History] Calcium Carbonate/Vitamin D3 [Calcium 600 + Vit D Tablet] 1 each PO BID 06/02/19 [History] Cholecalciferol (Vitamin D3) [Vitamin D3] 400 unit PO DAILY 06/02/19 [History] Cyanocobalamin (Vitamin B-12) [Cyanocobalamin Injection] 1,000 mcg IJ Q30D 06/02/19 [History] York-3/DHA/Epa/Fish Oil [Fish Oil 1,000 mg Softgel] 1,000 mg PO DAILY 06/02/19 [History] Ustekinumab [Stelara] 90 mg SQ Q2M 09/29/21 [History] predniSONE 7.5 mg PO DAILY 09/29/21 [History] Celecoxib 200 mg PO DAILY PRN 09/30/21 [History] Zinc 50 mg PO DAILY 09/30/21 [History] Past Medical History HEENT History: Reports: Impaired Vision Other HEENT History: wears glasses Cardiovascular History: Reports: None Respiratory History: Reports: None Gastrointestinal History: Reports: Gastritis, Other (See Below) Other Gastrointestinal History: Crohn's Genitourinary History: Reports: Other (See Below) Other Genitourinary History: hematuria,ulcerative proctitis Other Musculoskeletal History: muscle pain and weakness Neurological History: Reports: None Psychiatric History: Reports: Anxiety Endocrine/Metabolic History: Reports: Hypothyroidism, Vitamin D Deficiency Other Endocrine/Metabolic History: pituitary tumor. lipoprotein deficiency disorder. Lupus Hematologic History: Reports: B12 Deficiency, Iron Deficiency Immunologic History: Reports: Immunosuppression Other Immunologic History: recently diagnosed Oncologic (Cancer) History: Reports: None - Infectious Disease History Infectious Disease History: Reports: Chicken Pox, Novel Coronavirus, Rubella Other Infectious Disease History: Covid 09/29/21 - Past Surgical History Head Surgeries/Procedures: Reports: Other (See Below) GI Surgical History: Reports: Appendectomy, Colonoscopy, Other (See Below) Other GI Surgeries/Procedures: Ulcerative Colitis Male Surgical History: Reports: None Endocrine Surgical History: Reports: Pituitary Tumor Resection Other Endocrine Surgeries/Procedures: pituatary tumor removed. Neurological Surgical History: Reports: Intracranial Musculoskeletal Surgical History: Reports: Arthroscopic Knee Social & Family History - Family History HEENT: Reports: Glaucoma Cardiac: Reports: Hypertension : Reports: Renal Disease/Insufficiency Musculoskeletal: Reports: Osteoarthritis Neurological: Reports: Migraines Psychiatric: Reports: Depression Endocrine/Metabolic: Reports: Hypothyroidism Oncologic: Reports: Bladder - Tobacco Use Tobacco Use Status *Q: Current Every Day Tobacco User Years of Tobacco use: 10 Packs/Tins Daily: 5 Used Tobacco, but Quit: No - Caffeine Use Caffeine Use: Reports: Coffee - Recreational Drug Use Recreational Drug Use: No H&P Review of Systems - Review of Systems: Review Of Systems: See Below General: Reports: Chills, Fatigue, Decreased Appetite, Weight Loss. Denies: Fever HEENT: Denies: Dysphasia, Headaches, Sinus Congestion, Sore Throat, Visual Changes Pulmonary: Reports: Cough. Denies: Shortness of Breath, Wheezing Cardiovascular: Denies: Chest Pain, Palpitations, Edema, Lightheadedness Gastrointestinal: Reports: Abdominal Pain (mild, stable with chronic). Denies: Bloody Stool, Constipation, Diarrhea, Nausea, Vomiting Genitourinary: Denies: Dysuria, Frequency, Urgency, Hematuria Musculoskeletal: Reports: Muscle Pain. Denies: Joint Pain, Joint Swelling Skin: Denies: Cyanosis, Diaphoresis, Rash Psychiatric: Denies: Confusion, Depression, Anxiety Neurological: Denies: Confusion, Headache, Syncope, Tremors, Trouble Speaking, Difficulty Walking Exam - Exam Exam: See Below - Vital Signs Vital Signs: Last Vital Signs Temp 37.0 C 10/11/21 13:39 Pulse 88 10/11/21 13:39 Resp 18 10/11/21 13:39 BP 104/68 10/11/21 13:39 Pulse Ox 95 10/11/21 13:39 Weight: 78.562 kg - Exam Physical Exam Comments:: GENERAL: Ill-appearing adult in no acute distress. HEENT: Normocephalic, atraumatic. Conjunctiva clear. Nares patent without discharge. Mucous membranes dry, posterior pharynx unremarkable. NECK: Supple, no masses. CV: Regular rate and rhythm, no murmurs, rubs, or gallops. 2+ radial pulses. PULMONARY: Normal effort, fine crackles bilateral bases, otherwise clear ABDOMEN: Positive bowel sounds, soft, nontender, nondistended. EXTREMITIES: No edema, cyanosis, or clubbing. MUSCULOSKELETAL: Moves all extremities well. NEUROLOGICAL: No obvious deficits. DERMATOLOGIC: No rashes or suspicious lesions in exposed areas. Bruising noted on arms from IV access. PSYCHIATRIC: Alert, interactive, appropriate affect. - Patient Data Lab Results Last 24 hrs: Laboratory Results - last 24 hr 10/11/21 10/11/21 10/11/21 Range/Units 11:34 11:34 11:34 WBC 19.70 H (5.00-10.00) 10^3/uL RBC 4.03 L (4.50-6.00) 10^6/uL Hgb 11.8 L (13.0-17.0) g/dL Hct 34.4 L (40.0-52.0) % MCV 85.4 D (82.0-92.0) fL MCH 29.3 (27.0-31.0) pg MCHC 34.3 (32.0-36.0) g/dL RDW 12.5 (11.5-14.5) % Plt Count 431 H D (150-400) 10^3/uL MPV 10.0 (7.4-10.4) fL Add Manual Diff Yes Neutrophils % (Manual) 93 H (50-70) % Band Neutrophils % 2 L (4-12) % Lymphocytes % (Manual) 4 L (20-40) % Atypical Lymphs % 0 Monocytes % (Manual) 1 L (2-8) % Eosinophils % (Manual) 0 L (1-3) % Basophils % (Manual) 0 (0-1) % Platelet Estimate Increased Sodium 132 L (136-145) mmol/L Potassium 3.5 (3.5-5.1) mmol/L Chloride 96 L (98-107) mmol/L Carbon Dioxide 17.4 L (21.0-32.0) mmol/L Anion Gap 22.1 H (5-15) mmol/L BUN 22 H (7-18) mg/dL Creatinine 1.31 H (0.51-1.17) mg/dL Est Cr Clr Drug Dosing TNP Estimated GFR (MDRD) 56 mL/min Glucose 109 (70-140) mg/dL Lactic Acid 2.6 H (0.4-2.0) mmol/L Calcium 7.9 L (8.7-10.3) mg/dL Total Bilirubin 1.6 H (0.2-1.0) mg/dL AST 66 H (15-37) U/L ALT 73 H (14-63) U/L Alkaline Phosphatase 145 H (46-116) U/L Troponin I High Sens 162.600 H* (0-76.000) pg/mL Total Protein 6.9 (6.4-8.2) g/dL Albumin 2.31 L (3.40-5.00) g/dL Specimen Type Urine Color (YELLOW) Urine Appearance (CLEAR) Urine pH (5.0-9.0) Ur Specific Odell (1.005-1.030) Urine Protein (NEGATIVE) mg/dL Urine Glucose (UA) (NEGATIVE) mg/dL Urine Ketones (NEGATIVE) mg/dL Urine Occult Blood (NEGATIVE) Urine Nitrite (NEGATIVE) Urine Bilirubin (NEGATIVE) Urine Urobilinogen (0.2-1.0) E.U./dL Ur Leukocyte Esterase (NEGATIVE) Urine RBC (0-5) /HPF Urine WBC (0-5) /HPF Ur Epithelial Cells /LPF Urine Bacteria (NONE TO FEW) /HPF Urine Mucus (NEGATIVE) /LPF SARS CoV-2 RNA Rapid FRANCK (NEGATIVE) 10/11/21 10/11/21 Range/Units 13:19 15:35 WBC (5.00-10.00) 10^3/uL RBC (4.50-6.00) 10^6/uL Hgb (13.0-17.0) g/dL Hct (40.0-52.0) % MCV (82.0-92.0) fL MCH (27.0-31.0) pg MCHC (32.0-36.0) g/dL RDW (11.5-14.5) % Plt Count (150-400) 10^3/uL MPV (7.4-10.4) fL Add Manual Diff Neutrophils % (Manual) (50-70) % Band Neutrophils % (4-12) % Lymphocytes % (Manual) (20-40) % Atypical Lymphs % Monocytes % (Manual) (2-8) % Eosinophils % (Manual) (1-3) % Basophils % (Manual) (0-1) % Platelet Estimate Sodium (136-145) mmol/L Potassium (3.5-5.1) mmol/L Chloride (98-107) mmol/L Carbon Dioxide (21.0-32.0) mmol/L Anion Gap (5-15) mmol/L BUN (7-18) mg/dL Creatinine (0.51-1.17) mg/dL Est Cr Clr Drug Dosing Estimated GFR (MDRD) mL/min Glucose (70-140) mg/dL Lactic Acid (0.4-2.0) mmol/L Calcium (8.7-10.3) mg/dL Total Bilirubin (0.2-1.0) mg/dL AST (15-37) U/L ALT (14-63) U/L Alkaline Phosphatase (46-116) U/L Troponin I High Sens (0-76.000) pg/mL Total Protein (6.4-8.2) g/dL Albumin (3.40-5.00) g/dL Specimen Type Urinvoid Urine Color Yellow (YELLOW) Urine Appearance Clear (CLEAR) Urine pH 5.5 (5.0-9.0) Ur Specific Odell 1.010 (1.005-1.030) Urine Protein Negative (NEGATIVE) mg/dL Urine Glucose (UA) Negative (NEGATIVE) mg/dL Urine Ketones Negative (NEGATIVE) mg/dL Urine Occult Blood Moderate H (NEGATIVE) Urine Nitrite Negative (NEGATIVE) Urine Bilirubin Negative (NEGATIVE) Urine Urobilinogen 1.0 (0.2-1.0) E.U./dL Ur Leukocyte Esterase Negative (NEGATIVE) Urine RBC 0-5 (0-5) /HPF Urine WBC 0-5 (0-5) /HPF Ur Epithelial Cells Rare /LPF Urine Bacteria Rare (NONE TO FEW) /HPF Urine Mucus Rare H (NEGATIVE) /LPF SARS CoV-2 RNA Rapid FRANCK Positive H (NEGATIVE) Result Diagrams: 10/11/21 11:34 10/11/21 11:34 Sepsis Event Note - Evaluation Sepsis Screening Result: Sepsis Risk - Focused Exam Vital Signs: Vital Signs Temp Temp Pulse Resp BP Pulse Ox Pulse Ox 10/11/21 13:39 37.0 C 88 18 104/68 95 10/11/21 13:11 95 10/11/21 12:07 36.8 C 22 L 22 H 131/79 98 10/11/21 12:00 102 H 23 H 119/74 96 10/11/21 11:45 103 H 97 H 112/72 1 L 10/11/21 11:40 36.8 C 10/11/21 11:30 105 H 128/77 99 10/11/21 11:15 114 H 127/78 98 Problem List Initiated/Reviewed/Updated: Yes Orders Last 24hrs: Active Orders 24 hr Category Date Time Status Patient Status [ADT] Routine ADT 10/11/21 13:11 Active Cardiac Monitoring [RC] 07,11,15,19,23,03 Care 10/11/21 13:11 Active Oxygen Therapy [RC] PRN Care 10/11/21 13:11 Active Peripheral IV Care [RC] . DIRECTED Care 10/11/21 11:28 Active Up With Assistance [RC] ASDIRECTED Care 10/11/21 13:11 Active VTE/DVT Education [RC] PER UNIT ROUTINE Care 10/11/21 13:11 Active Vital Signs [RC] Q4H Care 10/11/21 13:11 Active CRP [C-REACTIVE PROTEIN] [CHEM] Routine Lab 10/11/21 16:17 Ordered CULTURE BLOOD [BC] Stat Lab 10/11/21 12:15 Received LACTIC ACID [CHEM] Routine Lab 10/11/21 16:16 Ordered PROCALCITONIN [REF] Routine Lab 10/11/21 16:17 Ordered TROPONIN I HIGH SENSITIVITY [CHEM] Routine Lab 10/11/21 16:16 Ordered Sodium Chloride 0.9% [Normal Saline] 1,000 ml Med 10/11/21 13:15 Active IV ASDIRECTED Sodium Chloride 0.9% [Saline Flush] Med 10/11/21 11:27 Active 10 ml FLUSH Q8HR PRN Blood Culture x2 Reflex Set [OM.PC] Stat Oth 10/11/21 12:03 Ordered Peripheral IV Insertion Adult [OM.PC] Routine Oth 10/11/21 11:27 Ordered Resuscitation Status Routine Resus Stat 10/11/21 13:11 Ordered EKG 12 Lead [EK] Stat Ther 10/11/21 11:27 Stop Req Medication Orders Sodium Chloride (Normal Saline) 1,000 mls @ 150 mls/hr IV ASDIRECTED [facility] Last Admin: 10/11/21 13:11 Dose: 150 mls/hr Documented by: JANIA Sodium Chloride (Sodium Chloride 0.9% 10 Ml Syringe) 10 ml FLUSH Q8HR PRN PRN Reason: keep vein open Assessment/Plan Comment:: HPI summary: 61 year old male admitted from the ED for elevated troponin, elevated WBC with lactic acid. Reports he had been COVID positive on 09/29/2021 and was given IV monoclonal antibodies on 09/30/2021. He returned to the ED with continued weakness and rigors on 10/04/2021 and was discharged home. Patient presented to the ED via ambulance today with rigors, weakness and decreased appetite. Denies chest pain or shortness of breath. ED course: -VS: [id number] 127/78- 98%/2L/NC -EKG: Sinus tachycardia, rate 106, No ST elevation or depression -CXR: no acute process -Lab: WBC 19.7, RBC 4.03, Hgb 11.8, Hct 34.4, Plt 431, Neut 93%, 2% bands, 4% lymphocytes, Na 132, K 3.5, CO2 17.4, Anion gap 22.1, BUN 22, creatinine 1.31, GFR 56, lactic acid 2.6, Ca 7.9, T Bili 1.6, AST 66, ALT 73, Alk phos 145, Trop 162.6, Alb 2.31; COVID positive -Urine: Mod occult blood, rare epithelial, rare bacteria and rare mucus, otherwise unremarkable Hospital course: 10/11/2021: Patient continues to deny any complaints of chest pain. Repeat troponin 547.500. CRP 32.2. Repeat lactic acid 0.7. Repeat EKG does not reveal any ST elevation. Procalcitonin pending. Call placed to [facility]. Acceptance from Dr. Solo to [place] in [place]. TSH found to be elevated 21.592. Hospitalization problems and plan: # NSTEMI - ASA was given in ED - Heparin gtt initiated - Transfer to [facility] # Lactic acidosis/leukocytosis/neutrophilia, unknown infectious cause - Levaquin 500mg IV given x1 in ED - Blood cultures pending - procalcitonin pending - NS 150mL/hr # Hypothyroidism, TSH 21.592 - on home dose of levothyroxine 100mcg daily (will let [facility] adjust as appropriate) Chronic, stable conditions: # Crohns # Pituitary tumor # terminal gauger supervisor steroid use # Vit B12 def Hospitalization details: # FEN: NS 150mL/hr; Na 132, K 3.5, regular diet # PPX: Heparin # Code status: Full # Emergency contact: updated by nursing # Disposition: to [facility] transfer.
[2021-10-11 17:45] VITALS: BP 97/65; PULSE 87
[2021-10-11] MEDS ORDERED: Heparin Sodium 5,000 Units/ML Vial IVPUSH ONE (18:00)
[2021-10-11] MEDS ORDERED: Heparin Sodium/D5W 250 ML IV SCH (18:00)
--- NOTE | 2021-10-11 18:25 | PCM.DCSUM1 ---
Discharge Summary - Hospital Course Free Text/Narrative:: Date of admission: 10/11/2021 Date of discharge: 10/11/2021 Admission diagnoses: # NSTEMI # Lactic acidosis/leukocytosis/neutrophilia, unknown infectious cause # Hypothyroidism # Recent COVID 19 infection Discharge diagnoses: # NSTEMI # Lactic acidosis/leukocytosis/neutrophilia, unknown infectious cause # Hypothyroidism # Recent COVID 19 infection # Crohns # Pituitary tumor # terminal makeup operator steroid use # Vit B12 def Consultations: [facility] hospitalist Procedures: none Hospital course: HPI summary: 61 year old male admitted from the ED for elevated troponin, elevated WBC with lactic acid. Reports he had been COVID positive on 09/29/2021 and was given IV monoclonal antibodies on 09/30/2021. He returned to the ED with continued weakness and rigors on 10/04/2021 and was discharged home. Patient presented to the ED via ambulance today with rigors, weakness and decreased appetite. Denies chest pain or shortness of breath. ED course: -VS: [id number] 127/78- 98%/2L/NC -EKG: Sinus tachycardia, rate 106, No ST elevation or depression -CXR: no acute process -Lab: WBC 19.7, RBC 4.03, Hgb 11.8, Hct 34.4, Plt 431, Neut 93%, 2% bands, 4% lymphocytes, Na 132, K 3.5, CO2 17.4, Anion gap 22.1, BUN 22, creatinine 1.31, GFR 56, lactic acid 2.6, Ca 7.9, T Bili 1.6, AST 66, ALT 73, Alk phos 145, Trop 162.6, Alb 2.31; COVID positive -Urine: Mod occult blood, rare epithelial, rare bacteria and rare mucus, otherwise unremarkable Hospital course: 10/11/2021: Patient continues to deny any complaints of chest pain. Repeat troponin 547.500. CRP 32.2. Repeat lactic acid 0.7. Repeat EKG does not reveal any ST elevation. Procalcitonin pending. Call placed to [facility]. Acceptance from Dr. Solo to [facility] in [place]. TSH found to be elevated 21.592. Discharge and follow-up recommendations: - Discharge to [facility] via ambulance - New medications at discharge: na - Follow-up on discharge. - Discharge Data Discharge Date: 10/11/21 Discharge Disposition: Home, Self-Care 01 Condition: Good - Referral to Home Health Primary Care Physician: Janel Colon NP - Discharge Plan Home Medications: Home Meds Levothyroxine [Synthroid] 100 mcg PO DAILY 07/13/15 [History] Calcium Carbonate/Vitamin D3 [Calcium 600 + Vit D Tablet] 1 each PO BID 06/02/19 [History] Cholecalciferol (Vitamin D3) [Vitamin D3] 400 unit PO DAILY 06/02/19 [History] Cyanocobalamin (Vitamin B-12) [Cyanocobalamin Injection] 1,000 mcg IJ Q30D 06/02/19 [History] Bronte-3/DHA/Epa/Fish Oil [Fish Oil 1,000 mg Softgel] 1,000 mg PO DAILY 06/02/19 [History] Ustekinumab [Stelara] 90 mg SQ Q2M 09/29/21 [History] predniSONE 7.5 mg PO DAILY 09/29/21 [History] Celecoxib 200 mg PO DAILY PRN 09/30/21 [History] Zinc 50 mg PO DAILY 09/30/21 [History] - Discharge Summary/Plan Comment DC Time >30 min.: Yes Total # of Minutes for Discharge Time: 60 - General Info Subjective Update: Resting in bed without complaint Functional Status: Reports: Pain Controlled, Urinating. Denies: New Symptoms - Review of Systems General: Reports: Weakness, Fatigue, Chills, Appetite. Denies: Fever HEENT: Denies: Dysphasia, Headaches, Sinus Congestion, Sore Throat, Visual Changes Pulmonary: Reports: Cough. Denies: Shortness of Breath, Wheezing Cardiovascular: Denies: Chest Pain, Palpitations, Edema, Lightheadedness Gastrointestinal: Denies: Abdominal Pain, Constipation, Diarrhea, Nausea, Vomiting Genitourinary: Denies: Dysuria, Frequency, Urgency, Hematuria Skin: Denies: Cyanosis, Pallor, Bruising, Rash Neurological: Reports: Weakness. Denies: Confusion, Headache, Numbness Psychiatric: Denies: Confusion, Depression - Patient Data Vitals - Most Recent: Last Vital Signs Temp 37.1 C 10/11/21 17:44 Pulse 87 10/11/21 17:44 Resp 18 10/11/21 17:44 BP 97/65 10/11/21 17:44 Pulse Ox 97 10/11/21 17:44 Weight - Most Recent: 78.562 kg I&O - Last 24 hours: Intake & Output 10/11/21 10/11/21 10/11/21 06:59 14:59 22:59 Intake Total 0 Balance 0 Lab Results - Last 24 hrs: Laboratory Results - last 24 hr 10/11/21 10/11/21 10/11/21 Range/Units 11:34 11:34 11:34 WBC 19.70 H (5.00-10.00) 10^3/uL RBC 4.03 L (4.50-6.00) 10^6/uL Hgb 11.8 L (13.0-17.0) g/dL Hct 34.4 L (40.0-52.0) % MCV 85.4 D (82.0-92.0) fL MCH 29.3 (27.0-31.0) pg MCHC 34.3 (32.0-36.0) g/dL RDW 12.5 (11.5-14.5) % Plt Count 431 H D (150-400) 10^3/uL MPV 10.0 (7.4-10.4) fL Add Manual Diff Yes Neutrophils % (Manual) 93 H (50-70) % Band Neutrophils % 2 L (4-12) % Lymphocytes % (Manual) 4 L (20-40) % Atypical Lymphs % 0 Monocytes % (Manual) 1 L (2-8) % Eosinophils % (Manual) 0 L (1-3) % Basophils % (Manual) 0 (0-1) % Platelet Estimate Increased Sodium 132 L (136-145) mmol/L Potassium 3.5 (3.5-5.1) mmol/L Chloride 96 L (98-107) mmol/L Carbon Dioxide 17.4 L (21.0-32.0) mmol/L Anion Gap 22.1 H (5-15) mmol/L BUN 22 H (7-18) mg/dL Creatinine 1.31 H (0.51-1.17) mg/dL Est Cr Clr Drug Dosing TNP Estimated GFR (MDRD) 56 mL/min Glucose 109 (70-140) mg/dL Lactic Acid 2.6 H (0.4-2.0) mmol/L Calcium 7.9 L (8.7-10.3) mg/dL Total Bilirubin 1.6 H (0.2-1.0) mg/dL AST 66 H (15-37) U/L ALT 73 H (14-63) U/L Alkaline Phosphatase 145 H (46-116) U/L Troponin I High Sens 162.600 H* (0-76.000) pg/mL C-Reactive Protein (0.0-0.9) mg/dL Total Protein 6.9 (6.4-8.2) g/dL Albumin 2.31 L (3.40-5.00) g/dL TSH, Ultra Sensitive (0.340-4.820) uIU/mL Specimen Type Urine Color (YELLOW) Urine Appearance (CLEAR) Urine pH (5.0-9.0) Ur Specific [place] (1.005-1.030) Urine Protein (NEGATIVE) mg/dL Urine Glucose (UA) (NEGATIVE) mg/dL Urine Ketones (NEGATIVE) mg/dL Urine Occult Blood (NEGATIVE) Urine Nitrite (NEGATIVE) Urine Bilirubin (NEGATIVE) Urine Urobilinogen (0.2-1.0) E.U./dL Ur Leukocyte Esterase (NEGATIVE) Urine RBC (0-5) /HPF Urine WBC (0-5) /HPF Ur Epithelial Cells /LPF Urine Bacteria (NONE TO FEW) /HPF Urine Mucus (NEGATIVE) /LPF SARS CoV-2 RNA Rapid FRANCK (NEGATIVE) 10/11/21 10/11/21 10/11/21 Range/Units 13:19 15:35 16:30 WBC (5.00-10.00) 10^3/uL RBC (4.50-6.00) 10^6/uL Hgb (13.0-17.0) g/dL Hct (40.0-52.0) % MCV (82.0-92.0) fL MCH (27.0-31.0) pg MCHC (32.0-36.0) g/dL RDW (11.5-14.5) % Plt Count (150-400) 10^3/uL MPV (7.4-10.4) fL Add Manual Diff Neutrophils % (Manual) (50-70) % Band Neutrophils % (4-12) % Lymphocytes % (Manual) (20-40) % Atypical Lymphs % Monocytes % (Manual) (2-8) % Eosinophils % (Manual) (1-3) % Basophils % (Manual) (0-1) % Platelet Estimate Sodium (136-145) mmol/L Potassium (3.5-5.1) mmol/L Chloride (98-107) mmol/L Carbon Dioxide (21.0-32.0) mmol/L Anion Gap (5-15) mmol/L BUN (7-18) mg/dL Creatinine (0.51-1.17) mg/dL Est Cr Clr Drug Dosing Estimated GFR (MDRD) mL/min Glucose (70-140) mg/dL Lactic Acid (0.4-2.0) mmol/L Calcium (8.7-10.3) mg/dL Total Bilirubin (0.2-1.0) mg/dL AST (15-37) U/L ALT (14-63) U/L Alkaline Phosphatase (46-116) U/L Troponin I High Sens 547.500 H* (0-76.000) pg/mL C-Reactive Protein 32.2 H (0.0-0.9) mg/dL Total Protein (6.4-8.2) g/dL Albumin (3.40-5.00) g/dL TSH, Ultra Sensitive (0.340-4.820) uIU/mL Specimen Type Urinvoid Urine Color Yellow (YELLOW) Urine Appearance Clear (CLEAR) Urine pH 5.5 (5.0-9.0) Ur Specific [place] 1.010 (1.005-1.030) Urine Protein Negative (NEGATIVE) mg/dL Urine Glucose (UA) Negative (NEGATIVE) mg/dL Urine Ketones Negative (NEGATIVE) mg/dL Urine Occult Blood Moderate H (NEGATIVE) Urine Nitrite Negative (NEGATIVE) Urine Bilirubin Negative (NEGATIVE) Urine Urobilinogen 1.0 (0.2-1.0) E.U./dL Ur Leukocyte Esterase Negative (NEGATIVE) Urine RBC 0-5 (0-5) /HPF Urine WBC 0-5 (0-5) /HPF Ur Epithelial Cells Rare /LPF Urine Bacteria Rare (NONE TO FEW) /HPF Urine Mucus Rare H (NEGATIVE) /LPF SARS CoV-2 RNA Rapid FRANCK Positive H (NEGATIVE) 12/17/21 12/17/21 Range/Units 16:30 16:30 WBC (5.00-10.00) 10^3/uL RBC (4.50-6.00) 10^6/uL Hgb (13.0-17.0) g/dL Hct (40.0-52.0) % MCV (82.0-92.0) fL MCH (27.0-31.0) pg MCHC (32.0-36.0) g/dL RDW (11.5-14.5) % Plt Count (150-400) 10^3/uL MPV (7.4-10.4) fL Add Manual Diff Neutrophils % (Manual) (50-70) % Band Neutrophils % (4-12) % Lymphocytes % (Manual) (20-40) % Atypical Lymphs % Monocytes % (Manual) (2-8) % Eosinophils % (Manual) (1-3) % Basophils % (Manual) (0-1) % Platelet Estimate Sodium (136-145) mmol/L Potassium (3.5-5.1) mmol/L Chloride (98-107) mmol/L Carbon Dioxide (21.0-32.0) mmol/L Anion Gap (5-15) mmol/L BUN (7-18) mg/dL Creatinine (0.51-1.17) mg/dL Est Cr Clr Drug Dosing Estimated GFR (MDRD) mL/min Glucose (70-140) mg/dL Lactic Acid 0.7 (0.4-2.0) mmol/L Calcium (8.7-10.3) mg/dL Total Bilirubin (0.2-1.0) mg/dL AST (15-37) U/L ALT (14-63) U/L Alkaline Phosphatase (46-116) U/L Troponin I High Sens (0-76.000) pg/mL C-Reactive Protein (0.0-0.9) mg/dL Total Protein (6.4-8.2) g/dL Albumin (3.40-5.00) g/dL TSH, Ultra Sensitive 21.592 H (0.340-4.820) uIU/mL Specimen Type Urine Color (YELLOW) Urine Appearance (CLEAR) Urine pH (5.0-9.0) Ur Specific [place] (1.005-1.030) Urine Protein (NEGATIVE) mg/dL Urine Glucose (UA) (NEGATIVE) mg/dL Urine Ketones (NEGATIVE) mg/dL Urine Occult Blood (NEGATIVE) Urine Nitrite (NEGATIVE) Urine Bilirubin (NEGATIVE) Urine Urobilinogen (0.2-1.0) E.U./dL Ur Leukocyte Esterase (NEGATIVE) Urine RBC (0-5) /HPF Urine WBC (0-5) /HPF Ur Epithelial Cells /LPF Urine Bacteria (NONE TO FEW) /HPF Urine Mucus (NEGATIVE) /LPF SARS CoV-2 RNA Rapid FRANCK (NEGATIVE) Med Orders - Current: Current Medications Calcium Citrate (Calcium Citrate/Vitamin D3 315 Mg-250 Unit Tab) 2 tab PO BID LONI Sodium Chloride (Normal Saline) 1,000 mls @ 150 mls/hr IV ASDIRECTED LONI Last Admin: 10/11/21 13:11 Dose: 150 mls/hr Documented by: Heparin Sodium/Dextrose () 250 mls @ 7.856 mls/hr IV TITRATE LONI; Protocol Last Admin: 10/11/21 18:11 Dose: 10 units/kg/hr, 7.856 mls/hr Documented by: Levothyroxine Sodium (Levothyroxine 100 Mcg Tab) 100 mcg PO DAILY LONI Non-Formulary Medication (Cholecalciferol (Vitamin D3) [Vitamin D3]) 400 unit PO DAILY LONI Prednisone (Prednisone 5 Mg Tab) 7.5 mg PO DAILY LONI Sodium Chloride (Sodium Chloride 0.9% 10 Ml Syringe) 10 ml FLUSH Q8HR PRN PRN Reason: keep vein open Zinc Gluconate (Zinc (Zinc Gluconate) 50 Mg Tab) 50 mg PO DAILY LONI Discontinued Medications Acetaminophen (Acetaminophen 500 Mg Tab) 1,000 mg PO ONETIME ONE Stop: 10/11/21 11:28 Last Admin: 10/11/21 11:40 Dose: 1,000 mg Documented by: Aspirin (Aspirin 81 Mg Tab.Chew) 324 mg PO ONETIME ONE Stop: 10/11/21 13:06 Last Admin: 10/11/21 13:11 Dose: 324 mg Documented by: Aspirin (Aspirin 81 Mg Tab.Chew) 324 mg PO ONETIME ONE Stop: 10/11/21 17:53 Heparin Sodium (Porcine) (Heparin Sodium 5,000 Units/Ml Vial) 4,000 units IVPUSH ONETIME ONE Stop: 10/11/21 18:01 Last Admin: 10/11/21 18:08 Dose: 4,000 units Documented by: Sodium Chloride (Normal Saline) 1,000 mls @ 999 mls/hr IV .BOLUS ONE Stop: 10/11/21 12:27 Last Admin: 10/11/21 11:50 Dose: 999 mls/hr Documented by: Levofloxacin/Dextrose 500 mg/ (Premix) 100 mls @ 100 mls/hr IV ONETIME ONE Stop: 10/11/21 13:58 Last Admin: 10/11/21 13:11 Dose: 100 mls/hr Documented by: Sodium Chloride (Normal Saline) Confirm Administered Dose 1,000 mls @ as directed .ROUTE .STK-MED ONE Stop: 10/11/21 13:05 Last Admin: 10/11/21 13:33 Dose: Not Given Documented by: Sodium Chloride (Normal Saline) 1,000 mls @ 150 mls/hr IV ASDIRECTED LONI Lorazepam (Lorazepam 2 Mg/Ml Sdv) 1 mg IVPUSH ONETIME ONE Stop: 10/11/21 11:28 Last Admin: 10/11/21 11:50 Dose: 1 mg Documented by: - Exam Physical Findings Comments:: GENERAL: Ill-appearing adult in no acute distress. HEENT: Normocephalic, atraumatic. Conjunctiva clear. Nares patent without discharge. Mucous membranes dry, posterior pharynx unremarkable. NECK: Supple, no masses. CV: Regular rate and rhythm, no murmurs, rubs, or gallops. 2+ radial pulses. PULMONARY: Normal effort, fine crackles bilateral bases, otherwise clear ABDOMEN: Positive bowel sounds, soft, nontender, nondistended. EXTREMITIES: No edema, cyanosis, or clubbing. MUSCULOSKELETAL: Moves all extremities well. NEUROLOGICAL: No obvious deficits. DERMATOLOGIC: No rashes or suspicious lesions in exposed areas. Bruising noted on arms from IV access. PSYCHIATRIC: Alert, interactive, appropriate affect.
[2021-10-11] MEDS ORDERED: Calcium Citrate/Vitamin D3 315 MG-250 Unit Tab PO SCH (21:00)
[2021-10-12] MEDS ORDERED: Levothyroxine 100 MCG Tab PO SCH (09:00)
[2021-10-12] MEDS ORDERED: Non-Formulary Medication 1 Each (Cholecalciferol (Vitamin D3) [Vitamin D3] 400 UNIT Capsul PO SCH (09:00)
[2021-10-12] MEDS ORDERED: predniSONE 5 MG Tab PO SCH (09:00)
[2021-10-12] MEDS ORDERED: Zinc (Zinc Gluconate) 50 MG Tab PO SCH (09:00)
== END 2021-10-11 18:40 ==
LOC: KA.ED 11:10 → KA.MS 13:09
PROVIDERS: ADMIT Physician Assistant Medical; ATTEND Nurse Practitioner Family
DX: I21.4 Non-ST elevation (NSTEMI) myocardial infarction (principal); D72.829 Elevated white blood cell count, unspecified; E03.9 Hypothyroidism, unspecified; E55.9 Vitamin D deficiency, unspecified; U07.1 COVID-19; E53.8 Deficiency of other specified B group vitamins; F17.210 Nicotine dependence, cigarettes, uncomplicated; Z79.890 Hormone replacement therapy; Z90.49 Acquired absence of other specified parts of digestive tract; Z98.890 Other specified postprocedural states; Z88.2 Allergy status to sulfonamides; Z79.899 Other long term (current) drug therapy
CPT/HCPCS: 36415; 71045; 80053; 81001; 83605; 84145; 84443; 84484; 85025; 86140; 87040; 93005; 93010; 96365; 96375; 99284; 99285-25; A9270-GY; J1644; J1956; J2060; J7030; U0002

== ENCOUNTER 2022-01-08 10:36 | Emergency (ER) | payer BC ==
[2022-01-08] MEDS ORDERED: Morphine 2 MG/ML SYRINGE IVPUSH ONE (10:57)
[2022-01-08] MEDS ORDERED: Ondansetron 4 MG/2 ML SDV IVPUSH ONE (10:58)
[2022-01-08 12:00] LABS: ANION GAP 16.1 mmol/L (5-15); CHLORIDE,CL 102 mmol/L (98-107); SODIUM,NA 139 mmol/L (136-145)
[2022-01-08] MEDS ORDERED: Iopamidol 755 Mg/ML 75 ML Bottle IVPUSH ONE (13:17)
[2022-01-08] MEDS ORDERED: Sodium Chloride 0.9% 50 ML IV SCH (13:30)
[2022-01-08 15:44] VITALS: BP 137/91; PULSE 77
== END 2022-01-08 15:50 ==
LOC: KA.ED 10:36
DX: K51.819 Other ulcerative colitis with unspecified complications (principal); E03.9 Hypothyroidism, unspecified; Z88.2 Allergy status to sulfonamides; Z88.8 Allergy status to other drugs, medicaments and biological substances; Z79.899 Other long term (current) drug therapy; Z79.01 Long term (current) use of anticoagulants; Z20.822 Contact with and (suspected) exposure to COVID-19
CPT/HCPCS: 36415; 71045; 74177; 80053; 83605; 83690; 84484; 85025; 85652; 86140; 87635; 96374; 96375; 99284; 99285; J2270; J2405; Q9967; U0002

== ENCOUNTER 2023-05-20 07:45 | Emergency (ER) | payer BC ==
[2023-05-20] MEDS ORDERED: Sodium Chloride 0.9% 1,000 ML IV ONE (07:57)
[2023-05-20 08:13] LABS: BASOPHILS ABSOLUTE AUTO 0.06 10^3/uL (0.00-0.10); BASOPHILS PERCENT AUTO 0.5 % (0.0-1.0); EOSINOPHILS PERCENT AUTO 0.8 % (1.0-3.0); HEMATOCRIT 46.6 % (40.0-52.0); HEMOGLOBIN 15.5 g/dL (13.0-17.0); IMMATURE GRAN ABSOLUTE AUTO 0.14 10^3/uL (0.00-0.50); IMMATURE GRAN PERCENT AUTO 1.1 % (0.0-5.0); LYMPHOCYTES ABSOLUTE AUTO 0.93 10^3/uL (1.00-4.00); LYMPHOCYTES PERCENT AUTO 7.2 % (20.0-40.0); MEAN CORPUSCULAR HGB CONC 33.3 g/dL (32.0-36.0); MEAN CORPUSCULAR VOLUME 90.1 fL (82.0-92.0); MEAN PLATELET VOLUME 9.3 fL (7.4-10.4); MONOCYTES PERCENT AUTO 8.5 % (2.0-8.0); NEUTROPHILS ABSOLUTE AUTO 10.58 10^3/uL (2.50-7.00); NEUTROPHILS PERCENT AUTO 81.9 % (50.0-70.0); PLATELET COUNT,PLT 280 10^3/uL (150-400); RED BLOOD CELL COUNT 5.17 10^6/uL (4.50-6.00); WHITE BLOOD CELL COUNT,WBC 12.91 10^3/uL (5.00-10.00)
[2023-05-20 08:28] LABS: ALBUMIN 3.34 g/dL (3.40-5.00); BILIRUBIN TOTAL 0.8 mg/dL (0.2-1.0); CALCIUM 8.6 mg/dL (8.7-10.3); CARBON DIOXIDE,CO2 24.6 mmol/L (21.0-32.0); CREATININE 1.05 mg/dL (0.51-1.17); EST CRCL DRUG DOSING (CG) 74.35 mL/min; POTASSIUM,K 3.6 mmol/L (3.5-5.1); PROTEIN TOTAL,TP 7.5 g/dL (6.4-8.2)
[2023-05-20] MEDS ORDERED: Albuterol/Ipratropium 3.0-0.5 MG/3 ML Neb Soln NEB ONE (08:29)
[2023-05-20] MEDS ORDERED: Iopamidol 755 Mg/ML 100 ML Bottle IV ONE (08:58)
[2023-05-20] MEDS ORDERED: Sodium Chloride 0.9% 50 ML IV SCH (09:00)
[2023-05-20 10:50] VITALS: BP 135/85; PULSE 80
== END 2023-05-20 11:15 | disposition home or self-care (01) ==
LOC: KA.ED 07:45
DX: K80.20 Calculus of gallbladder without cholecystitis without obstruction (principal); K57.32 Diverticulitis of large intestine without perforation or abscess without bleeding; E03.9 Hypothyroidism, unspecified; I25.2 Old myocardial infarction; Z86.16 Personal history of COVID-19; Z79.899 Other long term (current) drug therapy; Z88.2 Allergy status to sulfonamides
CPT/HCPCS: 36415; 71046; 74177; 80053; 83690; 84484; 85025; 93010; 94640; 96360; 99284; 99284-25; J3490; J7030; J7620-GY; Q9967

== ENCOUNTER 2023-09-29 08:45 | Inpatient (IN) | payer BC ==
[2023-09-29] MEDS ORDERED: Sodium Chloride 0.9% 10 ML Syringe FLUSH PRN (08:52)
[2023-09-29] MEDS ORDERED: Sodium Chloride 0.9% 1,000 ML ONE (09:10)
[2023-09-29] MEDS ORDERED: Sodium Chloride 0.9% 1,000 ML IV ONE ×2 (09:10→10:00)
[2023-09-29] MEDS ORDERED: HYDROmorphone 1 MG/ML Syringe ONE (09:10)
[2023-09-29] MEDS ORDERED: Ondansetron 4 MG/2 ML SDV IVPUSH ONE ×2 (09:10→10:55)
[2023-09-29] MEDS ORDERED: Ondansetron 4 MG/2 ML SDV ONE (09:10)
[2023-09-29] MEDS ORDERED: HYDROmorphone 1 MG/ML Syringe IVPUSH ONE ×2 (09:10→10:27)
[2023-09-29 09:14] LABS: BASOPHILS ABSOLUTE AUTO 0.05 10^3/uL (0.00-0.10); BASOPHILS PERCENT AUTO 0.3 % (0.0-1.0); EOSINOPHILS ABSOLUTE AUTO 0.08 10^3/uL (0.10-0.30); EOSINOPHILS PERCENT AUTO 0.5 % (1.0-3.0); HEMATOCRIT 41.2 % (40.0-52.0); HEMOGLOBIN 13.7 g/dL (13.0-17.0); IMMATURE GRAN ABSOLUTE AUTO 0.32 10^3/uL (0.00-0.50); IMMATURE GRAN PERCENT AUTO 1.9 % (0.0-5.0); LYMPHOCYTES ABSOLUTE AUTO 1.41 10^3/uL (1.00-4.00); LYMPHOCYTES PERCENT AUTO 8.3 % (20.0-40.0); MEAN CORPUSCULAR HEMOGLOBIN 29.2 pg (27.0-31.0); MEAN CORPUSCULAR HGB CONC 33.3 g/dL (32.0-36.0); MEAN CORPUSCULAR VOLUME 87.8 fL (82.0-92.0); MONOCYTES ABSOLUTE AUTO 1.61 10^3/uL (0.10-0.80); MONOCYTES PERCENT AUTO 9.5 % (2.0-8.0); NEUTROPHILS PERCENT AUTO 79.5 % (50.0-70.0); PLATELET COUNT,PLT 409 10^3/uL (150-400); RED BLOOD CELL COUNT 4.69 10^6/uL (4.50-6.00); RED CELL DISTRIBUTION WIDTH 11.6 % (11.5-14.5); WHITE BLOOD CELL COUNT,WBC 16.97 10^3/uL (5.00-10.00)
[2023-09-29] MEDS: Iopamidol 755 Mg/ML 100 ML Bottle IV ONE ×2 (09:24→09:30)
[2023-09-29] MEDS: Sodium Chloride 0.9% 50 ML IV SCH ×2 (09:30→21:41)
[2023-09-29 09:44] LABS: ALBUMIN 2.94 g/dL (3.40-5.00); ANION GAP 16.7 mmol/L (5-15); BILIRUBIN TOTAL 0.8 mg/dL (0.2-1.0); C-REACTIVE PROTEIN 8.64 mg/dL (0.00-0.50); CALCIUM 8.7 mg/dL (8.7-10.3); CREATININE 1.13 mg/dL (0.51-1.17); EST CRCL DRUG DOSING (CG) 69.09 mL/min; POTASSIUM,K 3.7 mmol/L (3.5-5.1); PROTEIN TOTAL,TP 7.7 g/dL (6.4-8.2)
[2023-09-29] MEDS ORDERED: Ciprofloxacin in D5W 400 MG in Premix Bag 1 BAG IV ONE ×2 (10:36)
[2023-09-29] MEDS: Sodium Chloride 0.9% 1,000 ML IV SCH ×2 (10:55→21:40)
[2023-09-29] MEDS ORDERED: metroNIDAZOLE/Normal Saline 500 MG in Premix Bag 1 BAG IV ONE (11:01)
[2023-09-29 12:05] LABS: APPEARANCE,URINE CLEAR (CLEAR); BILIRUBIN,URINE NEGATIVE (NEGATIVE); COLOR,URINE YELLOW (YELLOW); GLUCOSE,URINE NEGATIVE (NEGATIVE); KETONES,URINE TRACE mg/dL (NEGATIVE); LEUKOCYTE ESTERASE,URINE NEGATIVE (NEGATIVE); NITRITE,URINE NEGATIVE (NEGATIVE); OCCULT BLOOD,URINE MODERATE (NEGATIVE); PROTEIN,URINE NEGATIVE (NEGATIVE); UROBILINOGEN,URINE 0.2 E.U./dL (0.2-1.0)
[2023-09-29 12:19] LABS: BACTERIA,URINE RARE /HPF (NONE TO FEW); EPITHELIAL CELLS,URINE RARE /LPF; WBC,URINE 0-5 /HPF (0-5)
[2023-09-29] MEDS ORDERED: Promethazine 6.25 MG in Sodium Chloride 0.9% 50 ML IV PRN (13:29)
[2023-09-29] MEDS ORDERED: Lactated Ringers 1,000 ML IV ONE (13:29)
[2023-09-29] MEDS ORDERED: Acetaminophen 325 MG Tab PO PRN (13:29)
[2023-09-29] MEDS ORDERED: Albuterol 0.083% 2.5 MG/3 ML Neb Soln NEB PRN (13:29)
[2023-09-29] MEDS ORDERED: oxyCODONE 5 MG Tab PO PRN (13:29)
[2023-09-29 14:02] LABS: BASOPHILS ABSOLUTE AUTO 0.03 10^3/uL (0.00-0.10); BASOPHILS PERCENT AUTO 0.1 % (0.0-1.0); EOSINOPHILS ABSOLUTE AUTO 0.08 10^3/uL (0.10-0.30); EOSINOPHILS PERCENT AUTO 0.4 % (1.0-3.0); HEMATOCRIT 41.8 % (40.0-52.0); HEMOGLOBIN 13.8 g/dL (13.0-17.0); IMMATURE GRAN ABSOLUTE AUTO 0.35 10^3/uL (0.00-0.50); IMMATURE GRAN PERCENT AUTO 1.6 % (0.0-5.0); LYMPHOCYTES PERCENT AUTO 5.8 % (20.0-40.0); MEAN CORPUSCULAR HEMOGLOBIN 29.4 pg (27.0-31.0); MEAN CORPUSCULAR VOLUME 88.9 fL (82.0-92.0); MONOCYTES ABSOLUTE AUTO 2.13 10^3/uL (0.10-0.80); MONOCYTES PERCENT AUTO 9.6 % (2.0-8.0); NEUTROPHILS ABSOLUTE AUTO 18.37 10^3/uL (2.50-7.00); NEUTROPHILS PERCENT AUTO 82.5 % (50.0-70.0); PLATELET COUNT,PLT 292 10^3/uL (150-400); RED CELL DISTRIBUTION WIDTH 11.6 % (11.5-14.5); WHITE BLOOD CELL COUNT,WBC 22.26 10^3/uL (5.00-10.00)
[2023-09-29] MEDS: Piperacillin/Tazobactam 4.5 GM in Sodium Chloride 0.9% 100 ML IV SCH ×2 (14:20→21:41)
[2023-09-29] MEDS: Pantoprazole 40 MG Vial IVPUSH SCH (14:20)
[2023-09-29] MEDS: Morphine 2 MG/ML SYRINGE IVPUSH PRN (14:26)
[2023-09-29] MEDS ORDERED: Promethazine Topical Gel 25mg/0.5 ML Syringe TOP PRN (14:53)
[2023-09-29] MEDS ORDERED: PROMETHAZINE TOP PRN ×3 (14:56→15:57)
[2023-09-29] MEDS ORDERED: VANCOmycin 1.75 GM/350 ML 1.75 GM in Premix Bag 1 BAG IV ONE (15:00)
[2023-09-29] MEDS ORDERED: Ondansetron 4 MG/2 ML SDV IVPUSH PRN (15:15)
[2023-09-29] MEDS ORDERED: methylPREDNISolone Sod Succ 1,000 MG in Sodium Chloride 0.9% 100 ML IV SCH (17:00)
[2023-09-29] MEDS: Ketorolac 30 MG/ML SDV IVPUSH SCH ×2 (17:57→22:06)
[2023-09-29] MEDS: Apixaban 5 MG Tab PO SCH (21:42)
[2023-09-30] MEDS: Pantoprazole 40 MG Vial IVPUSH SCH ×2 (01:20→13:19)
[2023-09-30] MEDS: VANCOmycin 750 MG/150 ML 750 MG in Premix Bag 1 BAG IV SCH ×2 (02:10→15:30)
[2023-09-30] MEDS: Piperacillin/Tazobactam 4.5 GM in Sodium Chloride 0.9% 100 ML IV SCH ×3 (05:11→21:19)
[2023-09-30] MEDS: Ketorolac 30 MG/ML SDV IVPUSH SCH ×4 (05:11→22:17)
[2023-09-30] MEDS: Levothyroxine 112 MCG Tab PO SCH ×2 (05:39→06:32)
[2023-09-30] MEDS: Apixaban 5 MG Tab PO SCH ×2 (08:30→21:19)
[2023-09-30] MEDS: Sodium Chloride 0.9% 1,000 ML IV SCH ×2 (09:02→19:37)
[2023-09-30 09:19] LABS: BASOPHILS ABSOLUTE AUTO 0.01 10^3/uL (0.00-0.10); BASOPHILS PERCENT AUTO 0.1 % (0.0-1.0); HEMATOCRIT 38.3 % (40.0-52.0); HEMOGLOBIN 12.7 g/dL (13.0-17.0); IMMATURE GRAN ABSOLUTE AUTO 0.15 10^3/uL (0.00-0.50); IMMATURE GRAN PERCENT AUTO 0.8 % (0.0-5.0); LYMPHOCYTES PERCENT AUTO 3.3 % (20.0-40.0); MEAN CORPUSCULAR HEMOGLOBIN 29.4 pg (27.0-31.0); MEAN CORPUSCULAR HGB CONC 33.2 g/dL (32.0-36.0); MEAN CORPUSCULAR VOLUME 88.7 fL (82.0-92.0); MEAN PLATELET VOLUME 9.7 fL (7.4-10.4); MONOCYTES ABSOLUTE AUTO 0.12 10^3/uL (0.10-0.80); MONOCYTES PERCENT AUTO 0.7 % (2.0-8.0); NEUTROPHILS ABSOLUTE AUTO 17.08 10^3/uL (2.50-7.00); NEUTROPHILS PERCENT AUTO 95.1 % (50.0-70.0); PLATELET COUNT,PLT 387 10^3/uL (150-400); RED BLOOD CELL COUNT 4.32 10^6/uL (4.50-6.00); RED CELL DISTRIBUTION WIDTH 11.6 % (11.5-14.5); WHITE BLOOD CELL COUNT,WBC 17.96 10^3/uL (5.00-10.00)
[2023-09-30 09:29] LABS: ALBUMIN 2.46 g/dL (3.40-5.00); ANION GAP 15.3 mmol/L (5-15); BILIRUBIN TOTAL 0.6 mg/dL (0.2-1.0); C-REACTIVE PROTEIN 15.59 mg/dL (0.00-0.50); CALCIUM 7.5 mg/dL (8.7-10.3); CARBON DIOXIDE,CO2 22.4 mmol/L (21.0-32.0); CREATININE 1.03 mg/dL (0.51-1.17); EST CRCL DRUG DOSING (CG) 75.8 mL/min; MAGNESIUM 1.8 mg/dL (1.8-2.4); POTASSIUM,K 3.7 mmol/L (3.5-5.1)
[2023-09-30] MEDS ORDERED: Potassium Chloride 20 MEQ Tab.ER PO ONE (10:39)
[2023-09-30] MEDS ORDERED: Magnesium Oxide 500 MG Tab PO ONE (10:45)
[2023-09-30] MEDS ORDERED: methylPREDNISolone Sod Succ 1,000 MG in Sodium Chloride 0.9% 100 ML IV SCH (17:00)
[2023-10-01] MEDS: Morphine 2 MG/ML SYRINGE IVPUSH PRN (01:30)
[2023-10-01] MEDS: Pantoprazole 40 MG Vial IVPUSH SCH ×2 (01:45→13:11)
[2023-10-01] MEDS: VANCOmycin 750 MG/150 ML 750 MG in Premix Bag 1 BAG IV SCH (02:00)
[2023-10-01] MEDS: Ketorolac 30 MG/ML SDV IVPUSH SCH (04:56)
[2023-10-01] MEDS: Piperacillin/Tazobactam 4.5 GM in Sodium Chloride 0.9% 100 ML IV SCH (04:57)
[2023-10-01] MEDS: Sodium Chloride 0.9% 1,000 ML IV SCH (05:45)
[2023-10-01] MEDS: Levothyroxine 112 MCG Tab PO SCH ×2 (05:45→06:32)
[2023-10-01 07:19] LABS: HEMATOCRIT 35.7 % (40.0-52.0); HEMOGLOBIN 11.7 g/dL (13.0-17.0); IMMATURE GRAN ABSOLUTE AUTO 0.18 10^3/uL (0.00-0.50); IMMATURE GRAN PERCENT AUTO 0.9 % (0.0-5.0); LYMPHOCYTES ABSOLUTE AUTO 0.67 10^3/uL (1.00-4.00); LYMPHOCYTES PERCENT AUTO 3.4 % (20.0-40.0); MEAN CORPUSCULAR HEMOGLOBIN 29.5 pg (27.0-31.0); MEAN CORPUSCULAR HGB CONC 32.8 g/dL (32.0-36.0); MEAN CORPUSCULAR VOLUME 90.2 fL (82.0-92.0); MEAN PLATELET VOLUME 9.4 fL (7.4-10.4); MONOCYTES ABSOLUTE AUTO 0.49 10^3/uL (0.10-0.80); MONOCYTES PERCENT AUTO 2.5 % (2.0-8.0); NEUTROPHILS ABSOLUTE AUTO 18.11 10^3/uL (2.50-7.00); NEUTROPHILS PERCENT AUTO 93.2 % (50.0-70.0); PLATELET COUNT,PLT 355 10^3/uL (150-400); RED BLOOD CELL COUNT 3.96 10^6/uL (4.50-6.00); RED CELL DISTRIBUTION WIDTH 11.7 % (11.5-14.5); WHITE BLOOD CELL COUNT,WBC 19.45 10^3/uL (5.00-10.00)
[2023-10-01 07:38] LABS: ALBUMIN 2.27 g/dL (3.40-5.00); ANION GAP 14.2 mmol/L (5-15); BILIRUBIN TOTAL 0.4 mg/dL (0.2-1.0); CALCIUM 6.9 mg/dL (8.7-10.3); CARBON DIOXIDE,CO2 23.9 mmol/L (21.0-32.0); CREATININE 0.98 mg/dL (0.51-1.17); EST CRCL DRUG DOSING (CG) 79.66 mL/min; MAGNESIUM 2.1 mg/dL (1.8-2.4); POTASSIUM,K 4.1 mmol/L (3.5-5.1); PROTEIN TOTAL,TP 6.4 g/dL (6.4-8.2)
[2023-10-01] MEDS ORDERED: Ketorolac 30 MG/ML SDV IVPUSH PRN (08:00)
[2023-10-01] MEDS ORDERED: Metoclopramide 10 MG/2 ML SDV IVPUSH SCH (08:00)
[2023-10-01] MEDS ORDERED: Ciprofloxacin in D5W 400 MG in Premix Bag 1 BAG IV SCH ×2 (08:00)
[2023-10-01] MEDS ORDERED: Iopamidol 755 Mg/ML 100 ML Bottle IV ONE (08:50)
[2023-10-01] MEDS ORDERED: Sodium Chloride 0.9% 50 ML IV SCH (09:00)
[2023-10-01] MEDS: Apixaban 5 MG Tab PO SCH (09:14)
[2023-10-01] MEDS ORDERED: metroNIDAZOLE/Normal Saline 500 MG in Premix Bag 1 BAG IV SCH (09:15)
[2023-10-01 15:40] VITALS: BP 134/79; PULSE 79
[2023-10-01] MEDS ORDERED: methylPREDNISolone Sod Succ 1,000 MG in Sodium Chloride 0.9% 100 ML IV SCH (16:00)
== END 2023-10-01 16:40 | DRG 720 ==
LOC: KA.ED 08:45 → KA.MS 11:59
PROVIDERS: ADMIT Family Medicine; ATTEND Family Medicine
PROC: 3E030XZ Introduction of Vasopressor into Peripheral Vein, Open Approach (ICD-10-PCS; principal; 2023-09-29)
DX: A41.9 Sepsis, unspecified organism (principal); K57.20 Diverticulitis of large intestine with perforation and abscess without bleeding; K50.90 Crohn's disease, unspecified, without complications; E03.9 Hypothyroidism, unspecified; F41.9 Anxiety disorder, unspecified; J45.909 Unspecified asthma, uncomplicated; M85.80 Other specified disorders of bone density and structure, unspecified site; Z79.899 Other long term (current) drug therapy; Z79.01 Long term (current) use of anticoagulants; Z86.16 Personal history of COVID-19; Z79.890 Hormone replacement therapy; Z88.2 Allergy status to sulfonamides; I25.2 Old myocardial infarction; Z86.718 Personal history of other venous thrombosis and embolism; Z86.010 Personal history of colon polyps; Z98.890 Other specified postprocedural states; Z90.49 Acquired absence of other specified parts of digestive tract; Z87.891 Personal history of nicotine dependence
CPT/HCPCS: 36415; 71045; 74177; 80053; 80202; 81001; 83605; 83690; 83735; 85025; 86140; 87040; 97161-GP; 99284; A9270-GY; C9113; J0744; J1170; J1836; J1885; J2270; J2405; J2543; J2765; J2930; J3370; J3372; J3490; J7030; J7120; Q3014; Q9967

== ENCOUNTER 2023-11-08 12:06 | Emergency (ER) | payer BC ==
[2023-11-08] MEDS ORDERED: Naloxone 0.4 MG/ML SDV IVPUSH PRN (12:48)
[2023-11-08] MEDS ORDERED: Sodium Chloride 0.9% 10 ML Syringe FLUSH PRN (12:50)
[2023-11-08] MEDS: Sodium Chloride 0.9% 1,000 ML IV ONE ×2 (12:55→15:18)
[2023-11-08 12:56] LABS: BASOPHILS ABSOLUTE AUTO 0.05 10^3/uL (0.00-0.10); BASOPHILS PERCENT AUTO 0.2 % (0.0-1.0); EOSINOPHILS ABSOLUTE AUTO 0.02 10^3/uL (0.10-0.30); EOSINOPHILS PERCENT AUTO 0.1 % (1.0-3.0); HEMATOCRIT 44.5 % (40.0-52.0); HEMOGLOBIN 14.8 g/dL (13.0-17.0); IMMATURE GRAN ABSOLUTE AUTO 0.49 10^3/uL (0.00-0.50); LYMPHOCYTES ABSOLUTE AUTO 1.43 10^3/uL (1.00-4.00); LYMPHOCYTES PERCENT AUTO 5.7 % (20.0-40.0); MEAN CORPUSCULAR HEMOGLOBIN 30.1 pg (27.0-31.0); MEAN CORPUSCULAR HGB CONC 33.3 g/dL (32.0-36.0); MEAN CORPUSCULAR VOLUME 90.4 fL (82.0-92.0); MEAN PLATELET VOLUME 9.2 fL (7.4-10.4); MONOCYTES ABSOLUTE AUTO 1.81 10^3/uL (0.10-0.80); MONOCYTES PERCENT AUTO 7.3 % (2.0-8.0); NEUTROPHILS PERCENT AUTO 84.7 % (50.0-70.0); PLATELET COUNT,PLT 373 10^3/uL (150-400); RED BLOOD CELL COUNT 4.92 10^6/uL (4.50-6.00); RED CELL DISTRIBUTION WIDTH 12.8 % (11.5-14.5)
[2023-11-08] MEDS: Sodium Chloride 0.9% 1,000 ML ONE (12:58)
[2023-11-08] MEDS: HYDROmorphone 1 MG/ML Syringe IVPUSH ONE (13:00)
[2023-11-08 13:18] LABS: ALBUMIN 3.21 g/dL (3.40-5.00); C-REACTIVE PROTEIN 2.81 mg/dL (0.00-0.50); CALCIUM 8.7 mg/dL (8.7-10.3); CARBON DIOXIDE,CO2 25.7 mmol/L (21.0-32.0); EST CRCL DRUG DOSING (CG) 78.07 mL/min; POTASSIUM,K 3.7 mmol/L (3.5-5.1); PROTEIN TOTAL,TP 7.5 g/dL (6.4-8.2)
[2023-11-08 13:23] LABS: INFLUENZA A NAA NEGATIVE (NEGATIVE); INFLUENZA B NAA NEGATIVE (NEGATIVE)
[2023-11-08 13:24] LABS: CORONAVIRUS COVID-19 NAA NEGATIVE (NEGATIVE)
[2023-11-08] MEDS: Ondansetron 4 MG/2 ML SDV IVPUSH ONE (14:00)
[2023-11-08] MEDS: Sodium Chloride 0.9% 50 ML IV SCH (14:06)
[2023-11-08] MEDS: Diatrizoate Meglumine/Diatrizoate Sodium 37% 30 ML Bottle PO ONE (14:06)
[2023-11-08] MEDS: Iopamidol 755 Mg/ML 100 ML Bottle IV ONE (14:06)
[2023-11-08] MEDS: Piperacillin/Tazobactam 4.5 GM in Sodium Chloride 0.9% 100 ML IV SCH (14:39)
[2023-11-08 15:53] VITALS: BP 118/77; PULSE 97
== END 2023-11-08 16:10 ==
LOC: KA.ED 12:06
DX: K57.20 Diverticulitis of large intestine with perforation and abscess without bleeding (principal); R65.20 Severe sepsis without septic shock; A41.9 Sepsis, unspecified organism; R74.02 Elevation of levels of lactic acid dehydrogenase [LDH]; E03.9 Hypothyroidism, unspecified; I25.2 Old myocardial infarction; J45.909 Unspecified asthma, uncomplicated; Z79.899 Other long term (current) drug therapy; Z20.822 Contact with and (suspected) exposure to COVID-19; Z79.01 Long term (current) use of anticoagulants; Z88.2 Allergy status to sulfonamides; Z86.16 Personal history of COVID-19
CPT/HCPCS: 0240U; 36415; 71045; 74177; 80053; 82150; 83605; 83690; 85025; 86140; 87040; 96361; 96365; 96375; 99284; 99285-25; J1170; J2405; J2543; J3490; J7030; Q9963; Q9967

== ENCOUNTER 2025-02-02 19:36 | Emergency (ER) | payer BC ==
[2025-02-02] MEDS ORDERED: Naloxone 0.4 MG/ML SDV IVPUSH PRN (19:55)
[2025-02-02] MEDS: HYDROmorphone 1 MG/ML Syringe IM ONE (19:59)
[2025-02-02] MEDS ORDERED: Pregabalin 25 MG Cap ONE (21:39)
[2025-02-02] MEDS: Pregabalin 25 MG Cap PO SCH ×2 (21:46→21:47)
[2025-02-03 01:15] VITALS: BP 145/87; PULSE 74
[2025-02-03] MEDS ORDERED: Pregabalin 25 MG Cap PO SCH (21:00)
== END 2025-02-02 21:59 | disposition home or self-care (01) ==
LOC: KA.ED 19:36
DX: M54.42 Lumbago with sciatica, left side (principal); M25.552 Pain in left hip; G89.29 Other chronic pain; I25.2 Old myocardial infarction; Z88.8 Allergy status to other drugs, medicaments and biological substances; Z79.890 Hormone replacement therapy; Z79.899 Other long term (current) drug therapy
CPT/HCPCS: 96372; 99283; A9270-GY; J1171